=== PATIENT | male | born 1970 | race Caucasian/White ===

== ENCOUNTER 2018-10-23 18:15 | Emergency (ER) | payer MEDICARE | END 2018-10-23 18:30 | disposition left against medical advice (07) | LOC: ED 18:15 | DX: R10.32 Left lower quadrant pain (principal); Z53.21 Procedure and treatment not carried out due to patient leaving prior to being seen by health care provider ==

== ENCOUNTER 2018-12-22 01:12 | Inpatient (IN) | payer MEDICARE ==
[2018-12-22] MEDS ORDERED: TYLENOL PO ONE (02:09)
[2018-12-22] MEDS ORDERED: TYLENOL ONE (02:13)
[2018-12-22 02:52] LABS: Basophils # (Auto) 0.1 K/mm3 (0.0-0.1); Basophils % (Auto) 1.4 % (0.0-1.8); Eosinophils # (Auto) 0.1 K/mm3 (0.0-0.4); Eosinophils % (Auto) 2.1 % (0.0-4.3); Hematocrit 29.4 % (35.5-45.6); Hemoglobin 9.7 gm/dl (11.8-15.2); Lymphocytes # (Auto) 1.1 K/mm3 (1.2-5.4); Lymphocytes % (Auto) 17.3 % (13.4-35.0); Mean Corpuscular HGB Conc 33 % (32-34); Mean Corpuscular Volume 98 fl (84-94); Monocytes # (Auto) 0.5 K/mm3 (0.0-0.8); Monocytes % (Auto) 7.7 % (0.0-7.3); Platelet Count 314 K/mm3 (140-440); Red Cell Distribution Width 14.9 % (13.2-15.2)
[2018-12-22 03:02] LABS: Bacteria,Urine 1+ /HPF (Negative); Bilirubin,Urine NEG (Negative); Blood,Urine SM (Negative); Color,Urine Straw (Yellow); RBC,Urine < 1.0 /HPF (0.0-6.0); Urobilinogen,Urine < 2.0 mg/dL (<2.0)
[2018-12-22 03:03] LABS: Albumin 4.3 g/dL (3.9-5); Calcium 7.7 mg/dL (8.4-10.2)
--- NOTE | 2018-12-22 03:03 | Emergency Department Report ---
ED General Adult HPI - General Chief complaint: Abdominal Pain Stated complaint: ABD PAIN Time Seen by Provider: 12/22/18 02:46 Source: patient, RN notes reviewed, old records reviewed Mode of arrival: Ambulatory Limitations: No Limitations - History of Present Illness Initial comments: Patient does not have a primary care doctor. Nephrology: Dr. Montez This is a 48-year-old gentleman. The patient is not known to this provider previously. He has a history of end-stage renal disease, on dialysis, peritoneal dialysis, and hypertension. Patient presents to the emergency room today with complaint of nontraumatic right lower quadrant pain. The pain is throbbing and intermittent. It started a few hours ago. He reports having had pain like this twice in the past, both times were decreased with morphine. He describes multiple episodes of nausea, vomiting, and loose stool. He describes his emesis as reddish. He describes his stools as reddish. He denies headache, neck pain, chest pain, shortness of breath, testicular pain, irritative an obstructive urinary symptoms. He denies focal extremity weakness. He reports that he does not take any systemic anticoagulation. -: Gradual Location: abdomen Radiation: non-radiation Severity scale (0 -10): 10 Quality: aching Consistency: intermittent Improves with: medication Worsens with: none - Related Data Home Medications Medication Instructions Recorded Confirmed Last Taken Calcitriol [Rocaltrol] 0.25 mcg PO Q48H 05/22/18 05/22/18 Unknown Calcium Acetate [Phoslo] 1,334 mg PO DAILY 05/22/18 05/22/18 Unknown Carvedilol [Coreg] 25 mg PO BID 05/22/18 05/22/18 Unknown Furosemide [Lasix] 80 mg PO DAILY 05/22/18 05/22/18 Unknown Hydralazine HCl 50 mg PO TID 05/22/18 05/22/18 Unknown Lisinopril [Zestril] 20 mg PO DAILY 05/22/18 05/22/18 Unknown Multivitamin [Multiple Vitamins] 1 each PO DAILY 05/22/18 05/22/18 Unknown NIFEdipine [Nifedipine ER] 30 mg PO DAILY 05/22/18 05/22/18 Unknown Oxycodone HCl/Acetaminophen 1 each PO Q6HR PRN 05/22/18 05/22/18 Unknown [Percocet 2.5/325 mg] Pravastatin [Pravachol] 20 mg PO QHS 05/22/18 05/22/18 Unknown Sodium Bicarbonate 650 mg PO TID 05/22/18 05/22/18 Unknown Allergies Allergy/AdvReac Type Severity Reaction Status Date / Time No Known Allergies Allergy Unverified 05/22/18 12:04 ED Review of Systems ROS: Stated complaint: ABD PAIN Other details as noted in HPI Constitutional: malaise. denies: fever Eyes: denies: eye discharge ENT: denies: epistaxis Respiratory: denies: cough Cardiovascular: denies: chest pain Gastrointestinal: abdominal pain, nausea, vomiting Genitourinary: denies: dysuria, testicular pain Musculoskeletal: denies: back pain Skin: denies: lesions Neurological: denies: weakness Psychiatric: denies: anxiety ED Past Medical Hx - Past Medical History Previous Medical History?: Yes Hx Hypertension: Yes Hx Congestive Heart Failure: Yes Hx Renal Disease: Yes (Peritoneal dialysis) Hx Headaches / Migraines: Yes (Past hx migraines) - Surgical History Past Surgical History?: Yes Additional Surgical History: PD catheter - Social History Smoking Status: Never Smoker Substance Use Type: None - Medications Home Medications: Home Medications Medication Instructions Recorded Confirmed Last Taken Type Calcitriol [Rocaltrol] 0.25 mcg PO Q48H 05/22/18 05/22/18 Unknown History Calcium Acetate [Phoslo] 1,334 mg PO DAILY 05/22/18 05/22/18 Unknown History Carvedilol [Coreg] 25 mg PO BID 05/22/18 05/22/18 Unknown History Furosemide [Lasix] 80 mg PO DAILY 05/22/18 05/22/18 Unknown History Hydralazine HCl 50 mg PO TID 05/22/18 05/22/18 Unknown History Lisinopril [Zestril] 20 mg PO DAILY 05/22/18 05/22/18 Unknown History Multivitamin [Multiple Vitamins] 1 each PO DAILY 05/22/18 05/22/18 Unknown History NIFEdipine [Nifedipine ER] 30 mg PO DAILY 05/22/18 05/22/18 Unknown History Oxycodone HCl/Acetaminophen 1 each PO Q6HR PRN 05/22/18 05/22/18 Unknown History [Percocet 2.5/325 mg] Pravastatin [Pravachol] 20 mg PO QHS 05/22/18 05/22/18 Unknown History Sodium Bicarbonate 650 mg PO TID 05/22/18 05/22/18 Unknown History ED Physical Exam - General Limitations: No Limitations General appearance: alert, in no apparent distress - Head Head exam: Present: atraumatic, normocephalic - Eye Eye exam: Present: normal appearance, EOMI. Absent: nystagmus - ENT ENT exam: Present: normal exam, normal orophraynx, mucous membranes moist, normal external ear exam - Neck Neck exam: Present: normal inspection, full ROM. Absent: tenderness, meningismus - Respiratory Respiratory exam: Present: normal lung sounds bilaterally. Absent: respiratory distress - Cardiovascular Cardiovascular Exam: Present: regular rate, normal rhythm, normal heart sounds. Absent: bradycardia, tachycardia, irregular rhythm, systolic murmur, diastolic murmur, rubs, gallop - GI/Abdominal GI/Abdominal exam: Present: soft, tenderness (there is right-sided abdominal tenderness to deep palpation. However, with distraction, abdomen is nontender), other (there is a left-sided peritoneal dialysis catheter, with no redness, pus or streaking.). Absent: distended, guarding, rebound, rigid - Rectal Rectal exam: Present: normal inspection, normal rectal tone, heme (-) stool, other (chaperoned by nurse Tessie Snyder) - exam: Present: normal inspection, other (there is no testicular tenderness. There is normal testicular lie bilaterally. There is normal cremasteric reflex bilaterally.). Absent: testicular tenderness External exam: Present: normal external exam, other (chaperoned by nurse Tessie Snyder) - Extremities Exam Extremities exam: Present: normal inspection, full ROM, other (2+ pulses noted in the bilateral upper, lower extremities. Compartments soft. No long bony tenderness. The pelvis is stable.). Absent: tenderness, joint swelling, calf tenderness - Back Exam Back exam: Present: normal inspection, full ROM. Absent: tenderness, CVA tenderness (R), CVA tenderness (L), paraspinal tenderness, vertebral tenderness - Neurological Exam Neurological exam: Present: alert, normal gait, other (Extraocular movements intact. Tongue midline. No facial droop. Facial sensation intact to light touch in the V1, V2, V3 distribution bilaterally. 5 and 5 strength in 4 extremities.. Sensation is intact to light touch in 4 extremities.). Absent: motor sensory deficit - Psychiatric Psychiatric exam: Present: anxious - Skin Skin exam: Present: warm, dry, intact, normal color. Absent: rash ED Course Vital Signs 12/22/18 12/22/18 01:41 03:01 Temperature 97.9 F Pulse Rate 84 Respiratory 16 Rate Blood Pressure 190/97 194/93 O2 Sat by Pulse 98 Oximetry - Reevaluation(s) Reevaluation #1: 12/22/18 03:03 ga rn recovery aware Total Prescriptions 3 Total Private Pay 2 Total Prescribers 2 Total Pharmacies 2 Opioids* (excluding buprenorphine) Current Qty 148.0 Current MME/day 225.0 30 Day Avg MME/day 51.0 Buprenorphine* Current Qty 0.0 Current mg/day 0.0 30 Day Avg mg/day 0.0 Prescriptions Filled ID Written Drug QTY Days Prescriber Rx # Pharmacy * Refills Daily Dose Pymt Type DOCUMENT PREPARATION SPECIALIST 12/18/2018 2 12/08/2018 OXYCODONE HCL 30 MG TABLET 120.0 30 AN [facility] [id number] [place] (1586) 0 180.0 MME Private Pay [place] 12/09/2018 2 12/09/2018 OXYCODONE-ACETAMINOPHEN 10-325 90.0 30 AN [facility] [address] [place] (1586) 0 45.0 MME Private Pay [place] 11/06/2018 1 11/06/2018 OXYCODONE-ACETAMINOPHEN 5-325 30.0 7 [facility] [id number] [facility] ([id number]) 0 32.14 MME [place] *Pharmacy is created using a combination of pharmacy name and the last four digits of the pharmacy license number. *Per CDC guidance, the MME conversion factors prescribed or provided as part of medication-assisted treatment for opioid use disorder should not be used to benchmark against dosage thresholds meant for opioids prescribed for pain. Buprenorphine products have no agreed upon morphine equivalency, and as partial opioid agonists, are not expected to be associated with overdose risk in the same dose-dependent manner as doses for full agonist opioids. MME = morphine milligram equivalents. mg = dose in milligrams. Prescribers Name Address [facility] Zip Phone [address] [facility] [address] MANAN HERMAN I, [place] [address] [facility] [address] [facility] Address [facility] Zip Phone [employer] [phone] [facility] [address] [facility] [phone] [place] [address] Reevaluation #2: 12/22/18 04:59 Hypertension reviewed and appreciated, patient does not appear to be symptomatic, this is likely a chronic finding. Wheelchair with hydralazine. Reevaluation #3: 12/22/18 05:01 CT scan demonstrates the following pertinent findings IMPRESSION: Mild right hydroureteronephrosis and periureteral stranding may be due to infection or recently passed stone. No obstructive ureterolithiasis identified at this time. Tubing coiled in the pelvis with small volume of pelvic ascites and no focal fluid collection identified to suggest abscess or pseudocyst. Normal appendix. This document is electronically signed by Josue Cruz MD., December 22 2018 04:55:44 AM ET Transcribed By: MB Dictated By: JOSUE CRUZ MD Electronically Authenticated By: JOSUE CRUZ MD Signed Date/Time: 12/22/18 0452 ED Medical Decision Making - Lab Data Result diagrams: 12/22/18 02:16 12/22/18 02:16 Vital Signs 12/22/18 12/22/18 01:41 03:01 Temperature 97.9 F Pulse Rate 84 Respiratory 16 Rate Blood Pressure 190/97 194/93 O2 Sat by Pulse 98 Oximetry Labs 12/22/18 12/22/18 12/22/18 02:16 02:16 02:30 WBC 6.5 RBC 3.00 L Hgb 9.7 L Hct 29.4 L MCV 98 H MCH 32 MCHC 33 RDW 14.9 Plt Count 314 Lymph % (Auto) 17.3 [place] % (Auto) 7.7 H Eos % (Auto) 2.1 Baso % (Auto) 1.4 Lymph # 1.1 L [place] # 0.5 Eos # 0.1 Baso # 0.1 Seg Neutrophils % 71.5 H Seg Neutrophils # 4.7 Sodium 142 Potassium 5.4 H Chloride 100.8 Carbon Dioxide 12 L Anion Gap 35 BUN 148 H Creatinine 33.7 H Estimated GFR 1 BUN/Creatinine Ratio 4 Glucose 119 H Calcium 7.7 L Total Bilirubin 0.20 AST 14 ALT 8 Alkaline Phosphatase 38 Total Protein 7.3 Albumin 4.3 Albumin/Globulin Ratio 1.4 Urine Color Straw Urine Turbidity Clear Urine pH 5.0 Ur Specific [place] 1.012 Urine Protein 100 mg/dl Urine Glucose (UA) Neg Urine Ketones Neg Urine Blood Sm Urine Nitrite Neg Urine Bilirubin Neg Urine Urobilinogen < 2.0 Ur Leukocyte Esterase Neg Urine WBC (Auto) 2.0 Urine RBC (Auto) < 1.0 U Epithel Cells (Auto) 1.0 Urine Bacteria (Auto) 1+ - EKG Data -: EKG Interpreted by Ne EKG shows normal: sinus rhythm Rate: normal - EKG Data 12/22/18 05:11 This is a normal sinus rhythm. 85 bpm. QTC prolonged, left ventricular hypertrophy, numerous T-wave abnormalities, there is no endorsement of chest pain, this EKG is abnormal, this EKG is not consistent with ST elevation myocardial infarction. - Radiology Data Radiology results: pending, report reviewed, image reviewed Print Report Referring Physician: JOSUE QUILES Patient Name: TRA VELAZQUEZ Date of : 1970 Sex: Male Report Date: 2018-12-22 Report Status: Finalized Findings [facility] [address] [place] [address] Cat Scan Report Signed Patient: TRA VELAZQUEZ MR#: [id number] : 1970 Acct:[id number] Age/Sex: 48 / M ADM Date: 12/22/18 Loc: ED Attending Dr: Ordering Physician: JOSUE QUILES MD Date of Service: 12/22/18 Procedure(s): CT abdomen pelvis wo con Accession Number(s): [id number] cc: JOSUE QUILES MD PROCEDURE: CT ABDOMEN PELVIS WO CON TECHNIQUE: Noncontrast CT of the abdomen and pelvis HISTORY: rlq pain COMPARISONS: None FINDINGS: Imaged intrathoracic contents are unremarkable. Kidneys are normal in size, axis and position. Bilateral perinephric stranding and edema. Mild right hydroureteronephrosis and periureteral edema. No nephrolithiasis. No stones in the urinary bladder. No left-sided hydroureteronephrosis. Mild thickening of both adrenal glands without focal nodule. The liver, gallbladder, pancreas, and spleen demonstrate an unremarkable noncontrast appearance. Percutaneous tubing extends through the left para midline abdominal wall and terminates coiled in the pelvis. Trace free fluid in the pelvis. No focal fluid collection identified surrounding the tubing. Hollow enteric organs are normal in course and caliber. Appendix is normal. No pneumoperitoneum or abscess. Aorta is normal in course and caliber. Superficial soft tissues are unremarkable. No acute or aggressive appearing skeletal findings. IMPRESSION: Mild right hydroureteronephrosis and periureteral stranding may be due to infection or recently passed stone. No obstructive ureterolithiasis identified at this time. Tubing coiled in the pelvis with small volume of pelvic ascites and no focal fluid collection identified to suggest abscess or pseudocyst. Normal appendix. This document is electronically signed by Josue Cruz MD., December 22 2018 04:55:44 AM ET Transcribed By: IBETH Dictated By: JOSUE CRUZ MD Electronically Authenticated By: JOSUE CRUZ MD Signed Date/Time: 12/22/18 0458 - Medical Decision Making Differential diagnosis, including but not limited to: Uremia, azotemia, constipation, narcotic bowel syndrome, cyclic vomiting syndrome, urinary tract infection, spontaneous bacterial peritonitis Assessment and plan: 48-year-old gentleman with recurrent abdominal pain. He is afebrile with reassuring vital signs with the exception of hypertension. Laboratory studies are reviewed and appreciated. He is found to have hyperkalemia, azotemia, and uremia. His physical exam does not demonstrate evidence of obvious bleeding at this time. Nursing team is unable to obtain fluid for peritoneal fluid analysis, as they do not have a sterile placement. Nursing team currently working in conjunction with the camp housekeeper to obtai n a sterile to obtain peritoneal fluid. Clinically have low suspicion for bacterial peritonitis at this time. Contacted nephrology environment artist, Dr. Rosario, working with Dr Montez, who agrees with plan for admission for symptom control, his laboratory studies have indicated evidence of poorly controlled azotemia and uremia. Patient may need to be converted to hemodialysis. CT scan of the abdomen and pelvis is pending interpretation at this time. Hospital physician, Dr. Thomas to admit patient to the medical service. Discussed this plan of care with the patient, who verbalized understanding, and who is amenable to hospitalization. Critical care attestation.: If time is entered above; I have spent that time in minutes in the direct care of this critically ill patient, excluding procedure time. ED Disposition Clinical Impression: Azotemia, Uremia, Acute abdominal pain, Hypertensive urgency Disposition: DC-09 OP ADMIT IP TO THIS HOSP Is pt being admited?: Yes Condition: Good Referrals: BLAKE DAVENPORT MD [Primary Care Provider] - 3-5 Days
[2018-12-22] MEDS ORDERED: MORPHINE IM ONE (03:12)
[2018-12-22] MEDS ORDERED: ROCEPHIN/NS 1 GM/50 ML 1 GM/50 ML BAG IV ONE (04:27)
[2018-12-22] MEDS ORDERED: KIONEX PO ONE (04:27)
[2018-12-22] MEDS ORDERED: ZOFRAN IV ONE (04:28)
--- NOTE | 2018-12-22 04:58 | Cat Scan Report ---
PROCEDURE: CT ABDOMEN PELVIS WO CON TECHNIQUE: Noncontrast CT of the abdomen and pelvis HISTORY: rlq pain COMPARISONS: None FINDINGS: Imaged intrathoracic contents are unremarkable. Kidneys are normal in size, axis and position. Bilateral perinephric stranding and edema. Mild right hydroureteronephrosis and periureteral edema. No nephrolithiasis. No stones in the urinary bladder. N o left-sided hydroureteronephrosis. Mild thickening of both adrenal glands without focal nodule. The liver, gallbladder, pancreas, and sp ivania demonstrate an unremarkable noncontrast appearance. Percutaneous tubing extends through the left para midline abdominal wall and terminates coiled in the pelvis. Trace free fluid in the pelvis. No focal fluid collection identified surrounding the tubing. Hollow enteric organs are normal in course and caliber. Appendix is normal. No pneumoperitoneum or a bscess. Aorta is normal in course and caliber. Superficial soft tissues are unremarkable. No acute or aggressive appearing skeletal findings. IMPRESSION: Mild right hydroureteronephrosis and periureteral stranding may be due to infection or recently passe d stone. No obstructive ureterolithiasis identified at this time. Tubing coiled in the pelvis with small volume of pelvic ascites and no focal fluid collection identif ied to suggest abscess or pseudocyst. Normal appendix. This document is electronically signed by Josue Estrella MD., December 22 2018 04:55:44 AM ET
[2018-12-22] MEDS ORDERED: APRESOLINE IV ONE (04:59)
[2018-12-22] MEDS ORDERED: DILAUDID IV ONE (05:00)
[2018-12-22] MEDS ORDERED: DILAUDID ONE (05:03)
[2018-12-22] MEDS ORDERED: SODIUM CHLORIDE FLUSH SYRINGE 10 ML IV PRN (05:54)
--- NOTE | 2018-12-22 06:04 | History and Physical Report ---
<JEFFREY GILL - Last Filed: 12/22/18 06:26> History of Present Illness Date of examination: 12/22/18 Date of admission: 12/22/2018 Chief complaint: Abdominal pain History of present illness: Patient is a 48-year-old male with PMHx of end-stage renal disease on PD, heart failure, hypertension who presents to the ER with complaints of abdomen pain for 2 days. Patient states that the he usually gets so sick when his potassium is elevated. Patient reports a right lower quadrant abdominal pain, associated with nausea and vomiting. Patient states that the pain is associated with several episodes of vomiting and some loose diarrhea. Patient denies fever, denies headache, denies dizziness, patient was seen in the ER, he had a CT scan of the abdomen which showed mild right hydroreteronephrosis and periureteral stranding which may be due to infection or recently passed stone. Urology consulted for evaluation and patient is admitted for further admission. Past History Past Medical History: ESRD, heart failure, hypertension Past Surgical History: Other (peritoneal cath) Social history: no significant social history Family history: no significant family history Medications and Allergies Allergies Allergy/AdvReac Type Severity Reaction Status Date / Time No Known Allergies Allergy Unverified 05/22/18 12:04 Home Medications Medication Instructions Recorded Confirmed Last Taken Type Calcitriol [Rocaltrol] 0.25 mcg PO Q48H 05/22/18 05/22/18 Unknown History Calcium Acetate [Phoslo] 1,334 mg PO DAILY 05/22/18 05/22/18 Unknown History Carvedilol [Coreg] 25 mg PO BID 05/22/18 05/22/18 Unknown History Furosemide [Lasix] 80 mg PO DAILY 05/22/18 05/22/18 Unknown History Hydralazine HCl 50 mg PO TID 05/22/18 05/22/18 Unknown History Lisinopril [Zestril] 20 mg PO DAILY 05/22/18 05/22/18 Unknown History Multivitamin [Multiple Vitamins] 1 each PO DAILY 05/22/18 05/22/18 Unknown History NIFEdipine [Nifedipine ER] 30 mg PO DAILY 05/22/18 05/22/18 Unknown History Oxycodone HCl/Acetaminophen 1 each PO Q6HR PRN 05/22/18 05/22/18 Unknown History [Percocet 2.5/325 mg] Pravastatin [Pravachol] 20 mg PO QHS 05/22/18 05/22/18 Unknown History Sodium Bicarbonate 650 mg PO TID 05/22/18 05/22/18 Unknown History Active Meds: Active Medications Docusate Sodium (Colace) 100 mg PO BID [facility] Enoxaparin Sodium (Lovenox) 30 mg SUB-Q QDAY [facility] Morphine Sulfate (Morphine) 2 mg IV Q4H PRN PRN Reason: Pain, Moderate (4-6) Sodium Chloride (Sodium Chloride Flush Syringe 10 Ml) 10 ml IV BID [facility] Sodium Chloride (Sodium Chloride Flush Syringe 10 Ml) 10 ml IV PRN PRN PRN Reason: LINE FLUSH Review of Systems Gastrointestinal: abdominal pain, nausea, vomiting, diarrhea Exam - Constitutional Vitals: Temp Pulse Resp BP Pulse Ox 97.9 F 84 16 194/93 98 12/22/18 01:41 12/22/18 01:41 12/22/18 01:41 12/22/18 03:01 12/22/18 01:41 General appearance: Present: no acute distress - EENT Eyes: Present: EOM intact ENT: hearing intact - Neck Neck: Present: supple - Respiratory Respiratory effort: normal Respiratory: bilateral: CTA - Cardiovascular Rhythm: regular - Extremities Extremities: no ischemia, No edema Peripheral Pulses: within normal limits - Abdominal General gastrointestinal: Present: tender Results - Labs CBC & Chem 7: 12/22/18 02:16 12/22/18 02:16 Labs: Laboratory Last Values WBC 6.5 K/mm3 (4.5-11.0) 12/22/18 02:16 RBC 3.00 M/mm3 (3.65-5.03) L 12/22/18 02:16 Hgb 9.7 gm/dl (11.8-15.2) L 12/22/18 02:16 Hct 29.4 % (35.5-45.6) L 12/22/18 02:16 MCV 98 fl (84-94) H 12/22/18 02:16 MCH 32 pg (28-32) 12/22/18 02:16 MCHC 33 % (32-34) 12/22/18 02:16 RDW 14.9 % (13.2-15.2) 12/22/18 02:16 Plt Count 314 K/mm3 (140-440) 12/22/18 02:16 Lymph % (Auto) 17.3 % (13.4-35.0) 12/22/18 02:16 [place] % (Auto) 7.7 % (0.0-7.3) H 12/22/18 02:16 Eos % (Auto) 2.1 % (0.0-4.3) 12/22/18 02:16 Baso % (Auto) 1.4 % (0.0-1.8) 12/22/18 02:16 Lymph # 1.1 K/mm3 (1.2-5.4) L 12/22/18 02:16 [place] # 0.5 K/mm3 (0.0-0.8) 12/22/18 02:16 Eos # 0.1 K/mm3 (0.0-0.4) 12/22/18 02:16 Baso # 0.1 K/mm3 (0.0-0.1) 12/22/18 02:16 Seg Neutrophils % 71.5 % (40.0-70.0) H 12/22/18 02:16 Seg Neutrophils # 4.7 K/mm3 (1.8-7.7) 12/22/18 02:16 Sodium 142 mmol/L (137-145) 12/22/18 02:16 Potassium 5.4 mmol/L (3.6-5.0) H 12/22/18 02:16 Chloride 100.8 mmol/L (98-107) 12/22/18 02:16 Carbon Dioxide 12 mmol/L (22-30) L 12/22/18 02:16 35 mmol/L 12/22/18 02:16 BUN 148 mg/dL (9-20) H 12/22/18 02:16 33.7 mg/dL (0.8-1.5) H 12/22/18 02:16 Estimated GFR 1 ml/min 12/22/18 02:16 4 % 12/22/18 02:16 Glucose 119 mg/dL (75-100) H 12/22/18 02:16 POC Glucose 129 (70-105) H 12/22/18 05:00 Lactic Acid 0.80 mmol/L (0.7-2.0) 12/22/18 04:32 Calcium 7.7 mg/dL (8.4-10.2) L 12/22/18 02:16 0.20 mg/dL (0.1-1.2) 12/22/18 02:16 AST 14 units/L (5-40) 12/22/18 02:16 ALT 8 units/L (7-56) 12/22/18 02:16 38 units/L (35-129) 12/22/18 02:16 7.3 g/dL (6.3-8.2) 12/22/18 02:16 4.3 g/dL (3.9-5) 12/22/18 02:16 1.4 % 12/22/18 02:16 Straw (Yellow) 12/22/18 02:30 Clear (Clear) 12/22/18 02:30 5.0 (5.0-7.0) 12/22/18 02:30 Ur Specific [place] 1.012 (1.003-1.030) 12/22/18 02:30 100 mg/dl mg/dL (Negative) 12/22/18 02:30 Neg mg/dL (Negative) 12/22/18 02:30 Neg mg/dL (Negative) 12/22/18 02:30 Sm (Negative) 12/22/18 02:30 Neg (Negative) 12/22/18 02:30 Neg (Negative) 12/22/18 02:30 < 2.0 mg/dL (<2.0) 12/22/18 02:30 Ur Leukocyte Esterase Neg (Negative) 12/22/18 02:30 2.0 /HPF (0.0-6.0) 12/22/18 02:30 < 1.0 /HPF (0.0-6.0) 12/22/18 02:30 U Epithel Cells (Auto) 1.0 /HPF (0-13.0) 12/22/18 02:30 1+ /HPF (Negative) 12/22/18 02:30 Assessment and Plan Assessment and plan: 1. Right lower quadrant abdominal pain 2. ESRD on PD 3. H/o Hear failure (stable) 4. Hypertension 5. Hyperkalemia 6. Right had a true ureteral nephrosis Plan: Admit to [facility] for abdominal pain Pain control with Dilaudid Chek Electrolytessium level CT of the abdomen (pending) (result noted) Consult nephrology for PD management Consult radiology for hydroureteronephrosis Plan of care was d/w pt, voiced understanding Pt's condition and plan of care of care discussed with the attending Advance Directives: Yes Contraindication Mechanical VTE Prophylaxis: Contraindicated Plan of care discussed with patient/family: Yes <CARINE DELGADO - Last Filed: 12/22/18 06:52> Medications and Allergies Active Meds: Active Medications Docusate Sodium (Colace) 100 mg PO BID [facility] Enoxaparin Sodium (Lovenox) 30 mg SUB-Q QDAY [facility] Ceftriaxone Sodium (Rocephin/Ns 1 Gm/50 Ml) 1 gm in 50 mls @ 100 mls/hr IV Q24HR [facility]; Protocol Morphine Sulfate (Morphine) 2 mg IV Q4H PRN PRN Reason: Pain, Moderate (4-6) Peritoneal Dialysis Solution (Dianeal Low Calcium W/2.5% Dextrose) 2,000 ml IP Q4HR [facility] Sodium Chloride (Sodium Chloride Flush Syringe 10 Ml) 10 ml IV BID [facility] Sodium Chloride (Sodium Chloride Flush Syringe 10 Ml) 10 ml IV PRN PRN PRN Reason: LINE FLUSH Exam - Constitutional Vitals: Temp Pulse Resp BP Pulse Ox 97.9 F 84 16 173/82 98 12/22/18 01:41 12/22/18 01:41 12/22/18 01:41 12/22/18 06:20 12/22/18 01:41 Results - Labs CBC & Chem 7: 12/22/18 02:16 12/22/18 02:16 Labs: Laboratory Last Values WBC 6.5 K/mm3 (4.5-11.0) 12/22/18 02:16 RBC 3.00 M/mm3 (3.65-5.03) L 12/22/18 02:16 Hgb 9.7 gm/dl (11.8-15.2) L 12/22/18 02:16 Hct 29.4 % (35.5-45.6) L 12/22/18 02:16 MCV 98 fl (84-94) H 12/22/18 02:16 MCH 32 pg (28-32) 12/22/18 02:16 MCHC 33 % (32-34) 12/22/18 02:16 RDW 14.9 % (13.2-15.2) 12/22/18 02:16 Plt Count 314 K/mm3 (140-440) 12/22/18 02:16 Lymph % (Auto) 17.3 % (13.4-35.0) 12/22/18 02:16 [place] % (Auto) 7.7 % (0.0-7.3) H 12/22/18 02:16 Eos % (Auto) 2.1 % (0.0-4.3) 12/22/18 02:16 Baso % (Auto) 1.4 % (0.0-1.8) 12/22/18 02:16 Lymph # 1.1 K/mm3 (1.2-5.4) L 12/22/18 02:16 [place] # 0.5 K/mm3 (0.0-0.8) 12/22/18 02:16 Eos # 0.1 K/mm3 (0.0-0.4) 12/22/18 02:16 Baso # 0.1 K/mm3 (0.0-0.1) 12/22/18 02:16 Seg Neutrophils % 71.5 % (40.0-70.0) H 12/22/18 02:16 Seg Neutrophils # 4.7 K/mm3 (1.8-7.7) 12/22/18 02:16 Sodium 142 mmol/L (137-145) 12/22/18 02:16 Potassium 5.4 mmol/L (3.6-5.0) H 12/22/18 02:16 Chloride 100.8 mmol/L (98-107) 12/22/18 02:16 Carbon Dioxide 12 mmol/L (22-30) L 12/22/18 02:16 35 mmol/L 12/22/18 02:16 BUN 148 mg/dL (9-20) H 12/22/18 02:16 33.7 mg/dL (0.8-1.5) H 12/22/18 02:16 Estimated GFR 1 ml/min 12/22/18 02:16 4 % 12/22/18 02:16 Glucose 119 mg/dL (75-100) H 12/22/18 02:16 POC Glucose 129 (70-105) H 12/22/18 05:00 Lactic Acid 0.80 mmol/L (0.7-2.0) 12/22/18 04:32 Calcium 7.7 mg/dL (8.4-10.2) L 12/22/18 02:16 0.20 mg/dL (0.1-1.2) 12/22/18 02:16 AST 14 units/L (5-40) 12/22/18 02:16 ALT 8 units/L (7-56) 12/22/18 02:16 38 units/L (35-129) 12/22/18 02:16 7.3 g/dL (6.3-8.2) 12/22/18 02:16 4.3 g/dL (3.9-5) 12/22/18 02:16 1.4 % 12/22/18 02:16 Straw (Yellow) 12/22/18 02:30 Clear (Clear) 12/22/18 02:30 5.0 (5.0-7.0) 12/22/18 02:30 Ur Specific [place] 1.012 (1.003-1.030) 12/22/18 02:30 100 mg/dl mg/dL (Negative) 12/22/18 02:30 Neg mg/dL (Negative) 12/22/18 02:30 Neg mg/dL (Negative) 12/22/18 02:30 Sm (Negative) 12/22/18 02:30 Neg (Negative) 12/22/18 02:30 Neg (Negative) 12/22/18 02:30 < 2.0 mg/dL (<2.0) 12/22/18 02:30 Ur Leukocyte Esterase Neg (Negative) 12/22/18 02:30 2.0 /HPF (0.0-6.0) 12/22/18 02:30 < 1.0 /HPF (0.0-6.0) 12/22/18 02:30 U Epithel Cells (Auto) 1.0 /HPF (0-13.0) 12/22/18 02:30 1+ /HPF (Negative) 12/22/18 02:30 Assessment and Plan Assessment and plan: 48-year-old man with a history of hypertension, end-stage renal disease on peritoneal dialysis, CHF S emergency room for evaluation of right lower quadrant pain that started at midnight, sharp pain, constant, no radiation, intensity is 7/10. Symptoms started after PD was finish. Renal was consulted for dialysis, status post Kayexalate for hyperkalemia. Empiric IV Rocephin started for possible SBP, follow fluid culture. CAT scan of the abdomen and pelvis shows right Hydroureterohydronephrosis, consult urology when available, none manager division today. Patien seen and examined, d/w ECOLOGY PROFESSOR.
[2018-12-22] MEDS ORDERED: OXYCODONE HCL PO PRN (06:59)
[2018-12-22] MEDS ORDERED: ACETAMINOPHEN PO PRN (06:59)
[2018-12-22] MEDS ORDERED: APRESOLINE ONE (07:01)
[2018-12-22] MEDS ORDERED: ROXICODONE PO PRN (07:39)
[2018-12-22] MEDS ORDERED: TYLENOL PO PRN (07:41)
[2018-12-22] MEDS ORDERED: NON-FORMULARY (Hydralazine Hcl [Hydralazine Hcl] 50 MG) PO SCH (08:00)
[2018-12-22] MEDS: MORPHINE IV PRN ×2 (08:15→21:41)
--- NOTE | 2018-12-22 08:17 | Event Note ---
Date: 12/22/18 Patient seen and examined medical records reviewed Patient complaints of abdominal pain, evaluation by nephrology Planning for hemodialysis, agree with the current management
[2018-12-22] MEDS: PHOSLO PO SCH (08:23)
[2018-12-22] MEDS: ROCALTROL PO SCH (08:24)
[2018-12-22] MEDS: APRESOLINE PO SCH ×3 (08:24→21:31)
[2018-12-22] MEDS: SODIUM BICARBONATE PO SCH ×3 (08:25→21:31)
[2018-12-22] MEDS: COLACE PO SCH ×2 (09:23→21:30)
[2018-12-22] MEDS: COREG PO SCH ×2 (09:23→21:30)
[2018-12-22] MEDS: LOVENOX SUB-Q SCH (09:24)
[2018-12-22] MEDS: LASIX PO SCH (09:24)
[2018-12-22] MEDS: PROCARDIA XL PO SCH (09:25)
[2018-12-22] MEDS: Renal Caps PO SCH (09:25)
[2018-12-22] MEDS: ZESTRIL PO SCH (09:25)
[2018-12-22] MEDS: SODIUM CHLORIDE FLUSH SYRINGE 10 ML IV SCH ×2 (09:26→21:32)
[2018-12-22] MEDS: ROCEPHIN/NS 1 GM/50 ML 1 GM/50 ML BAG IV SCH (09:37)
[2018-12-22] MEDS ORDERED: NON-FORMULARY (Multivitamin [Multiple Vitamins] 1 EACH) PO SCH (10:00)
[2018-12-22] MEDS ORDERED: NON-FORMULARY (Furosemide [Lasix Tab] 80 MG) PO SCH (10:00)
[2018-12-22] MEDS: DIANEAL LOW CALCIUM W/2.5% DEXTROSE IP SCH ×4 (10:00→21:32)
[2018-12-22] MEDS: ZOFRAN IV PRN (11:40)
--- NOTE | 2018-12-22 12:11 | Consultation ---
History of Present Illness - Reason for Consult Consult date: 12/22/18 - History of Present Illness new to our service Patient is a 48-year-old male with PMHx of end-stage renal disease on PD, heart failure, hypertension who presents to the ER with complaints of abdomen pain for 2 days. Patient states that the he usually gets so sick when his potassium is elevated. Patient reports a right lower quadrant abdominal pain, associated with nausea and vomiting. Patient states that the pain is associated with several episodes of vomiting and some loose diarrhea. Patient denies fever, denies headache, denies dizziness, patient present to the ER. CT scan of the abdomen which showed mild right hydroreteronephrosis and periureteral stranding which may be due to infection or recently passed stone. no surgery except PD catheter abd soft rt groin pain ---better (hx of left groin pain 2months ago) a/P abd apin--- mild hydro - OBS Past History Past Medical History: ESRD, heart failure, hypertension Past Surgical History: Other (peritoneal cath) Social history: no significant social history Family history: no significant family history Medications and Allergies Allergies Allergy/AdvReac Type Severity Reaction Status Date / Time No Known Allergies Allergy Unverified 05/22/18 12:04 Home Medications Medication Instructions Recorded Confirmed Last Taken Type Calcitriol [Rocaltrol] 0.25 mcg PO Q48H 05/22/18 05/22/18 12/21/18 History Calcium Acetate [Phoslo] 1,334 mg PO DAILY 05/22/18 05/22/18 12/21/18 History Carvedilol [Coreg] 25 mg PO BID 05/22/18 05/22/18 12/21/18 History Furosemide [Lasix] 80 mg PO DAILY 05/22/18 05/22/18 12/21/18 History Hydralazine HCl 50 mg PO TID 05/22/18 05/22/18 12/21/18 History Lisinopril [Zestril] 20 mg PO DAILY 05/22/18 05/22/18 12/21/18 09:00 History Multivitamin [Multiple Vitamins] 1 each PO DAILY 05/22/18 05/22/18 Unknown Histo ry NIFEdipine [Nifedipine ER] 30 mg PO DAILY 05/22/18 05/22/18 Unknown History Oxycodone HCl/Acetaminophen 1 each PO Q6HR PRN 05/22/18 05/22/18 11/28/18 History [Percocet 2.5/325 mg] Pravastatin [Pravachol] 20 mg PO QHS 05/22/18 05/22/18 Unknown History Sodium Bicarbonate 650 mg PO TID 05/22/18 05/22/18 12/21/18 History Active Meds: Active Medications Acetaminophen (Tylenol) 650 mg PO Q6H PRN PRN Reason: Pain, Moderate (4-6) Calcitriol (Rocaltrol) 0.25 mcg PO Q48H [facility] Last Admin: 12/22/18 08:24 Dose: 0.25 mcg Documented by: Calcium Acetate (Phoslo) 1,334 mg PO QAM@0800 [facility] Last Admin: 12/22/18 08:23 Dose: 1,334 mg Documented by: Carvedilol (Coreg) 25 mg PO BID [facility] Last Admin: 12/22/18 09:23 Dose: 25 mg Documented by: Docusate Sodium (Colace) 100 mg PO BID [facility] Last Admin: 12/22/18 09:23 Dose: 100 mg Documented by: Enoxaparin Sodium (Lovenox) 30 mg SUB-Q QDAY [facility] Last Admin: 12/22/18 09:24 Dose: 30 mg Documented by: Furosemide (Lasix) 80 mg PO DAILY [facility] Last Admin: 12/22/18 09:24 Dose: 80 mg Documented by: Hydralazine HCl (Apresoline) 25 mg PO TID [facility] Last Admin: 12/22/18 08:24 Dose: 25 mg Documented by: Ceftriaxone Sodium (Rocephin/Ns 1 Gm/50 Ml) 1 gm in 50 mls @ 100 mls/hr IV Q24HR [facility]; Protocol Last Admin: 12/22/18 09:37 Dose: 100 mls/hr Documented by: Lisinopril (Zestril) 20 mg PO DAILY [facility] Last Admin: 12/22/18 09:25 Dose: 20 mg Documented by: Morphine Sulfate (Morphine) 2 mg IV Q4H PRN PRN Reason: Pain, Moderate (4-6) Last Admin: 12/22/18 08:15 Dose: 2 mg Documented by: Multivit/Ca Carb/B Cmplx/FA/Prenat (Renal Caps) 1 cap PO QDAY [facility] Last Admin: 12/22/18 09:25 Dose: 1 cap Documented by: Nifedipine (Procardia Xl) 30 mg PO DAILY [facility] Last Admin: 12/22/18 09:25 Dose: 30 mg Documented by: Ondansetron HCl (Zofran) 4 mg IV Q4H PRN PRN Reason: Nausea And Vomiting Last Admin: 12/22/18 11:40 Dose: 4 mg Documented by: Oxycodone HCl (Roxicodone) 2.5 mg PO Q6H PRN PRN Reason: Pain, Moderate (4-6) Peritoneal Dialysis Solution (Dianeal Low Calcium W/2.5% Dextrose) 2,000 ml IP Q4HR [facility] Pravastatin Sodium (Pravachol) 20 mg PO QHS [facility] Sodium Bicarbonate (Sodium Bicarbonate) 650 mg PO TID [facility] Last Admin: 12/22/18 08:25 Dose: 650 mg Documented by: Sodium Chloride (Sodium Chloride Flush Syringe 10 Ml) 10 ml IV BID [facility] Last Admin: 12/22/18 09:26 Dose: 10 ml Documented by: Sodium Chloride (Sodium Chloride Flush Syringe 10 Ml) 10 ml IV PRN PRN PRN Reason: LINE FLUSH Exam - Constitutional Vitals: Temp Pulse Resp BP Pulse Ox 97.9 F 95 H 16 190/82 98 12/22/18 01:41 12/22/18 09:25 12/22/18 01:41 12/22/18 08:24 12/22/18 01:41 Results - Labs CBC & Chem 7: 12/22/18 02:16 12/22/18 02:16 Labs: Abnormal lab results 12/22/18 12/22/18 12/22/18 Range/Units 02:16 02:16 05:00 RBC 3.00 L (3.65-5.03) M/mm3 Hgb 9.7 L (11.8-15.2) gm/dl Hct 29.4 L (35.5-45.6) % MCV 98 H (84-94) fl [place] % (Auto) 7.7 H (0.0-7.3) % Lymph # 1.1 L (1.2-5.4) K/mm3 Seg Neutrophils % 71.5 H (40.0-70.0) % Potassium 5.4 H (3.6-5.0) mmol/L Carbon Dioxide 12 L (22-30) mmol/L BUN 148 H (9-20) mg/dL Creatinine 33.7 H (0.8-1.5) mg/dL Glucose 119 H (75-100) mg/dL POC Glucose 129 H (70-105) Calcium 7.7 L (8.4-10.2) mg/dL
[2018-12-22] MEDS ORDERED: XYLOCAINE 1%/ EPI 1:100,000 INFILTRATI ONE (13:29)
[2018-12-22] MEDS ORDERED: HEPARIN/NS 5000 UNIT/500ML(CATH LAB) 500 ML IR ONE (13:29)
[2018-12-22] MEDS ORDERED: NACL 0.9% 500 ML 500 ML ONE (13:30)
[2018-12-22] MEDS ORDERED: ANCEF/STERILE WATER 2 GM/20 ML 2 GM/20 ML SYRINGE IV ONE (13:30)
[2018-12-22] MEDS ORDERED: VERSED ONE ×2 (13:30→14:26)
[2018-12-22] MEDS ORDERED: NACL 0.9% 500 ML 0 ML ONE (13:40)
[2018-12-22] MEDS ORDERED: NACL 0.9% 500 ML 500 ML IV SCH (14:00)
[2018-12-22] MEDS: SUBLIMAZE ONE ×2 (14:14→14:25)
--- NOTE | 2018-12-22 14:17 | Consultation ---
History of Present Illness - History of Present Illness 48 year old with medical history significant for HTN, ESRD on peritoneal meri lysis presenting with complaints of nausea, vomitting for several weeks . He reports he had recent episode of peritonitis and was on hemodialysis. He admits to missing some exchanges since returning to home peritoneal dialysis. He admits to an abnormal taste in his mouth , reports good UF on PD. He denies any sick contacts, denies any orthopnea or PND. Denies any fever or chills. Has had some diarrhoea . He admits to a signficant decrease in urine output as well. Past History Past Medical History: ESRD, heart failure, hypertension Past Surgical History: Other (peritoneal cath) Social history: no significant social history Family history: no significant family history Medications and Allergies Allergies Allergy/AdvReac Type Severity Reaction Status Date / Time No Known Allergies Allergy Unverified 05/22/18 12:04 Home Medications Medication Instructions Recorded Confirmed Last Taken Type Calcitriol [Rocaltrol] 0.25 mcg PO Q48H 05/22/18 12/22/18 12/21/18 History Calcium Acetate [Phoslo] 1,334 mg PO DAILY 05/22/18 12/22/18 12/21/18 History Carvedilol [Coreg] 25 mg PO BID 05/22/18 12/22/18 12/21/18 History Furosemide [Lasix] 80 mg PO DAILY 05/22/18 12/22/18 12/21/18 History Hydralazine HCl 50 mg PO TID 05/22/18 12/22/18 12/21/18 History Lisinopril [Zestril] 20 mg PO DAILY 05/22/18 12/22/18 12/21/18 09:00 History Multivitamin [Multiple Vitamins] 1 each PO DAILY 05/22/18 12/22/18 Unknown History NIFEdipine [Nifedipine ER] 30 mg PO DAILY 05/22/18 12/22/18 Unknown History Oxycodone HCl/Acetaminophen 1 each PO Q6HR PRN 05/22/18 12/22/18 11/28/18 History [Percocet 2.5/325 mg] Pravastatin [Pravachol] 20 mg PO QHS 05/22/18 12/22/18 Unknown History Sodium Bicarbonate 650 mg PO TID 05/22/18 12/22/18 12/21/18 History Active Meds: Active Medications Acetaminophen (Tylenol) 650 mg PO Q6H PRN PRN Reason: Pain, Moderate (4-6) Calcitriol (Rocaltrol) 0.25 mcg PO Q48H [facility] Last Admin: 12/22/18 08:24 Dose: 0.25 mcg Documented by: Calcium Acetate (Phoslo) 1,334 mg PO QAM@0800 [facility] Last Admin: 12/22/18 08:23 Dose: 1,334 mg Documented by: Carvedilol (Coreg) 25 mg PO BID [facility] Last Admin: 12/22/18 09:23 Dose: 25 mg Documented by: Docusate Sodium (Colace) 100 mg PO BID [facility] Last Admin: 12/22/18 09:23 Dose: 100 mg Documented by: Enoxaparin Sodium (Lovenox) 30 mg SUB-Q QDAY [facility] Last Admin: 12/22/18 09:24 Dose: 30 mg Documented by: Furosemide (Lasix) 80 mg PO DAILY [facility] Last Admin: 12/22/18 09:24 Dose: 80 mg Documented by: Hydralazine HCl (Apresoline) 25 mg PO TID [facility] Last Admin: 12/22/18 08:24 Dose: 25 mg Documented by: Ceftriaxone Sodium (Rocephin/Ns 1 Gm/50 Ml) 1 gm in 50 mls @ 100 mls/hr IV Q24HR [facility]; Protocol Last Admin: 12/22/18 09:37 Dose: 100 mls/hr Documented by: Sodium Chloride (Nacl 0.9% 500 Ml) 500 mls @ 50 mls/hr IV DIRECT [facility] Lisinopril (Zestril) 20 mg PO DAILY [facility] Last Admin: 12/22/18 09:25 Dose: 20 mg Documented by: Morphine Sulfate (Morphine) 2 mg IV Q4H PRN PRN Reason: Pain, Moderate (4-6) Last Admin: 12/22/18 08:15 Dose: 2 mg Documented by: Multivit/Ca Carb/B Cmplx/FA/Prenat (Renal Caps) 1 cap PO QDAY [facility] Last Admin: 12/22/18 09:25 Dose: 1 cap Documented by: Nifedipine (Procardia Xl) 30 mg PO DAILY [facility] Last Admin: 12/22/18 09:25 Dose: 30 mg Documented by: Ondansetron HCl (Zofran) 4 mg IV Q4H PRN PRN Reason: Nausea And Vomiting Last Admin: 12/22/18 11:40 Dose: 4 mg Documented by: Oxycodone HCl (Roxicodone) 2.5 mg PO Q6H PRN PRN Reason: Pain, Moderate (4-6) Peritoneal Dialysis Solution (Dianeal Low Calcium W/2.5% Dextrose) 2,000 ml IP Q4HR [facility] Last Admin: 12/22/18 13:13 Dose: Not Given Documented by: Pravastatin Sodium (Pravachol) 20 mg PO QHS [facility] Sodium Bicarbonate (Sodium Bicarbonate) 650 mg PO TID [facility] Last Admin: 12/22/18 08:25 Dose: 650 mg Documented by: Sodium Chloride (Sodium Chloride Flush Syringe 10 Ml) 10 ml IV BID [facility] Last Admin: 12/22/18 09:26 Dose: 10 ml Documented by: Sodium Chloride (Sodium Chloride Flush Syringe 10 Ml) 10 ml IV PRN PRN PRN Reason: LINE FLUSH Review of Systems Constitutional: weight loss, anorexia, poor appetite, no weight gain Ears, nose, mouth and throat: no deferred, no ear pain Cardiovascular: no chest pain, no orthopnea, no dyspnea on exertion Respiratory: no cough Gastrointestinal: nausea, vomiting, diarrhea Genitourinary Male: no dysuria, no hematuria Rectal: no pain, no incontinence Musculoskeletal: no neck stiffness Integumentary: no deferred Neurological: no head injury Psychiatric: no anxiety, no memory loss Endocrine: no cold intolerance, no heat intolerance Allergic/Immunologic: no urticaria Exam - Vital Signs Vital signs: Vital Signs Temp Pulse Resp BP Pulse Ox 97.9 F 84 16 190/97 98 12/22/18 01:41 12/22/18 01:41 12/22/18 01:41 12/22/18 01:41 12/22/18 01:41 - General Appearance General appearance: well-developed, well-nourished EENT: ATNC, PERRL Neck: Present: neck supple Respiratory: Rales, Decreased Breath Sounds Heart: regular, S1S2 Gastrointestinal: Present: normoactive bowel sounds, other (peritoneal dialysis catheter site clean. ) Integumentary: no rash Neurologic: alert and oriented x3, CN 3-12 intact Musculoskeletal: Absent: erythema Psychiatric: mood/affect appropriate Results - Lab Results 12/22/18 02:16 12/22/18 02:16 Most recent lab results Calcium 7.7 mg/dL (8.4-10.2) L 12/22/18 02:16 - Image Kidney/bladder ultrasound: image reviewed, other (I reviewed cT with mild hydroureteronephrosis on right side without nephrolithiasis. ) Assessment and Plan - Patient Problems (1) End stage renal disease Current Visit: Yes Status: Acute Plan to address problem: End stage renal disease - appears poor compliant -has also had a decline in residual renal function - admitted with marked elevated BUN /creatinine with concern for uremia - Not achieving adequate clearance on PD at this time - Given marked Azotemia , Will proceed with HD for 3hrs today to reduce risk for disequilibrum and then 3.5hrs tomorrow. Will increase home PD to 6 times daily , will need to likely increase fill volumes as well, Patient is anxioius to remain on PD but this depends on if if he can achieve clearance in the future. -Appreciate vascular surgery for Perm cath placement CT with mild hydroureteronephrosis WITHOUT nephrolithiasis . -was seen by urology. -Will proceed with HD following (2) Anemia Current Visit: Yes Status: Acute Plan to address problem: Moderate Anemia Hb: 9.6g/dl 2/2 chronic kidney disease Epogen with HD if hb<9g/dl (3) Uremia Current Visit: Yes Status: Acute Plan to address problem: Uremia -2/2 inadequate dialysis versus non compliance - Will initate hemodialysis for solute clearance he is at risk for complications of uremia -Will continue PD as well . - Will need evaluation as he does not appear to be achieving clearance with current prescription for PD / versus non compliance. - PD prescription increased to 6times daily. (4) Hyperkalemia, diminished renal excretion Current Visit: Yes Status: Acute Plan to address problem: Hyperkalemia: Will initiate Hemodialysis Low potassium diet. (5) Acidosis Current Visit: Yes Status: Acute Plan to address problem: Metabolic acidosis 2/2 inadequate dialysis. Will initiate hemodialysis for solute clearance
[2018-12-22] MEDS: HEPARIN 10,000 UNITS/10 ML ONE ×3 (14:19→14:29)
[2018-12-22] MEDS: XYLOCAINE 1%/ EPI 1:100,000 INFILTRATI ONE ×2 (14:25→14:30)
--- NOTE | 2018-12-22 14:39 | Consultation ---
History of Present Illness - Reason for Consult Consult date: 12/22/18 Evaluation for PermaCath placement Requesting physician: LAUREEN COOPER - History of Present Illness This pt is a 48yo AAM that was admitted via the ER on 12/22/18 with nausea. He had a CT scan the revealed mild right hydroureteronephrosis. He has ESRD on PD. He has been getting poor clearance (BUN 138 Cr 33.7). He was evaluated by Nephrology who has recommended conversion to HD at least temporarily. A vascular surgery consult has been requested to evaluate for permacath placement. Past History Past Medical History: dialysis, ESRD, heart failure, hypertension Past Surgical History: Other (peritoneal cath) Social history: no significant social history Family history: no significant family history Medications and Allergies Allergies Allergy/AdvReac Type Severity Reaction Status Date / Time No Known Allergies Allergy Unverified 05/22/18 12:04 Home Medications Medication Instructions Recorded Confirmed Last Taken Type Calcitriol [Rocaltrol] 0.25 mcg PO Q48H 05/22/18 12/22/18 12/21/18 History Calcium Acetate [Phoslo] 1,334 mg PO DAILY 05/22/18 12/22/18 12/21/18 History Carvedilol [Coreg] 25 mg PO BID 05/22/18 12/22/18 12/21/18 History Furosemide [Lasix] 80 mg PO DAILY 05/22/18 12/22/18 12/21/18 History Hydralazine HCl 50 mg PO TID 05/22/18 12/22/18 12/21/18 History Lisinopril [Zestril] 20 mg PO DAILY 05/22/18 12/22/18 12/21/18 09:00 History Multivitamin [Multiple Vitamins] 1 each PO DAILY 05/22/18 12/22/18 Unknown History NIFEdipine [Nifedipine ER] 30 mg PO DAILY 05/22/18 12/22/18 Unknown History Oxycodone HCl/Acetaminophen 1 each PO Q6HR PRN 05/22/18 12/22/18 11/28/18 History [Percocet 2.5/325 mg] Pravastatin [Pravachol] 20 mg PO QHS 05/22/18 12/22/18 Unknown History Sodium Bicarbonate 650 mg PO TID 05/22/18 12/22/18 12/21/18 History Active Meds: Active Medications Acetaminophen (Tylenol) 650 mg PO Q6H PRN PRN Reason: Pain, Moderate (4-6) Calcitriol (Rocaltrol) 0.25 mcg PO Q48H [facility] Last Admin: 12/22/18 08:24 Dose: 0.25 mcg Documented by: Calcium Acetate (Phoslo) 1,334 mg PO QAM@0800 [facility] Last Admin: 12/22/18 08:23 Dose: 1,334 mg Documented by: Carvedilol (Coreg) 25 mg PO BID [facility] Last Admin: 12/22/18 09:23 Dose: 25 mg Documented by: Docusate Sodium (Colace) 100 mg PO BID [facility] Last Admin: 12/22/18 09:23 Dose: 100 mg Documented by: Enoxaparin Sodium (Lovenox) 30 mg SUB-Q QDAY [facility] Last Admin: 12/22/18 09:24 Dose: 30 mg Documented by: Furosemide (Lasix) 80 mg PO DAILY [facility] Last Admin: 12/22/18 09:24 Dose: 80 mg Documented by: Hydralazine HCl (Apresoline) 25 mg PO TID [facility] Last Admin: 12/22/18 08:24 Dose: 25 mg Documented by: Ceftriaxone Sodium (Rocephin/Ns 1 Gm/50 Ml) 1 gm in 50 mls @ 100 mls/hr IV Q24HR [facility]; Protocol Last Admin: 12/22/18 09:37 Dose: 100 mls/hr Documented by: Sodium Chloride (Nacl 0.9% 500 Ml) 500 mls @ 50 mls/hr IV DIRECT [facility] Lisinopril (Zestril) 20 mg PO DAILY [facility] Last Admin: 12/22/18 09:25 Dose: 20 mg Documented by: Morphine Sulfate (Morphine) 2 mg IV Q4H PRN PRN Reason: Pain, Moderate (4-6) Last Admin: 12/22/18 08:15 Dose: 2 mg Documented by: Multivit/Ca Carb/B Cmplx/FA/Prenat (Renal Caps) 1 cap PO QDAY [facility] Last Admin: 12/22/18 09:25 Dose: 1 cap Documented by: Nifedipine (Procardia Xl) 30 mg PO DAILY [facility] Last Admin: 12/22/18 09:25 Dose: 30 mg Documented by: Ondansetron HCl (Zofran) 4 mg IV Q4H PRN PRN Reason: Nausea And Vomiting Last Admin: 12/22/18 11:40 Dose: 4 mg Documented by: Oxycodone HCl (Roxicodone) 2.5 mg PO Q6H PRN PRN Reason: Pain, Moderate (4-6) Peritoneal Dialysis Solution (Dianeal Low Calcium W/2.5% Dextrose) 2,000 ml IP Q4HR [facility] Last Admin: 12/22/18 13:13 Dose: Not Given Documented by: Pravastatin Sodium (Pravachol) 20 mg PO QHS [facility] Sodium Bicarbonate (Sodium Bicarbonate) 650 mg PO TID [facility] Last Admin: 12/22/18 08:25 Dose: 650 mg Documented by: Sodium Chloride (Sodium Chloride Flush Syringe 10 Ml) 10 ml IV BID [facility] Last Admin: 12/22/18 09:26 Dose: 10 ml Documented by: Sodium Chloride (Sodium Chloride Flush Syringe 10 Ml) 10 ml IV PRN PRN PRN Reason: LINE FLUSH Review of Systems All systems: negative Exam - Constitutional Vitals: Temp Pulse Resp BP Pulse Ox 98.5 F 75 18 161/84 96 12/22/18 08:47 12/22/18 12:57 12/22/18 08:47 12/22/18 12:57 12/22/18 12:57 General appearance: Present: no acute distress - EENT Eyes: Present: EOM intact ENT: hearing intact - Neck Neck: Present: supple - Respiratory Respiratory effort: normal - Extremities Extremities: normal temperature - Psychiatric Psychiatric: appropriate mood/affect, intact judgment & insight, cooperative - Neurologic Neurologic: no focal deficits Results - Labs CBC & Chem 7: 12/22/18 02:16 12/22/18 02:16 Labs: Abnormal lab results 12/22/18 12/22/18 12/22/18 Range/Units 02:16 02:16 05:00 RBC 3.00 L (3.65-5.03) M/mm3 Hgb 9.7 L (11.8-15.2) gm/dl Hct 29.4 L (35.5-45.6) % MCV 98 H (84-94) fl [place] % (Auto) 7.7 H (0.0-7.3) % Lymph # 1.1 L (1.2-5.4) K/mm3 Seg Neutrophils % 71.5 H (40.0-70.0) % Potassium 5.4 H (3.6-5.0) mmol/L Carbon Dioxide 12 L (22-30) mmol/L BUN 148 H (9-20) mg/dL Creatinine 33.7 H (0.8-1.5) mg/dL Glucose 119 H (75-100) mg/dL POC Glucose 129 H (70-105) Calcium 7.7 L (8.4-10.2) mg/dL Assessment and Plan This pt has been admitted and noted to have a symptomatic uremia despite PD. A vascular surgery consult has been requested to evaluate for PC placement. The risk, benefits, and alternatives discussed at length. He has had a previous RIJ PC in the past. He states understanding of the risk, and agrees to proceed. This will be performed in the laboratory sample carrier utilizing fluoroscopic and u/s guidance as needed. - Patient Problems (1) Uremia Current Visit: Yes Status: Acute (2) End stage renal disease Current Visit: Yes Status: Acute (3) Hypertensive urgency Current Visit: Yes Status: Acute
[2018-12-22] MEDS ORDERED: NACL 0.9% 100 ML IV PRN ×2 (14:40→15:03)
--- NOTE | 2018-12-22 14:41 | Operative Report ---
Operative Report Operative Report: Date of procedure: 12/22/2018 Pre-operative diagnosis: ESRD Post-operative diagnosis: same Procedure name(s): 1. US guided puncture of the left internal jugular vein 2. Placement of left internal jugular permacath (Glidepath 27 cm) 3. Fluoroscopic supervision Surgeon: Gumaro Lai MD, FACS Women Designer: none Anesthesia: local with sedation; Sedation start: 1414 Sedation end: 1440 Total sedation time: 26 minutes or 2 anesthesia units EBL: minimal Operative indication: Patient is a 48 yo man who requires hemodialysis access. Findings: Good flow from both ports. Catheter located at the cavoatrial junction. Procedure: The patient was placed on the table in the supine position. The area over the left neck and chest was prepped with ChloraPrep solution and draped in usual sterile fashion. 2% lidocaine was used for local anesthesia. Under real-time ultrasound guidance the left internal jugular vein was identified and cannulated. A guidewire was advanced into the central circulation. A tunnel was made over the anterior chest using the tunneling device in the kit. The catheter was then tunneled between the 2 incisions. Using a series of dilators, the track into the jugular vein was dilated. The introducer sheath was then placed. The catheter was placed through the introducer sheath which was then removed. The catheter tip was placed at the cavoatrial junction. The catheters were aspirated with excellent flow from both ports. Both ports flushed easily. They were then filled to their stated volume with 1000 unit per milliliter heparin. Closure at the insertion site was done with 4-0 subcuticular Monocryl. The catheter was sewn to the skin with 2-0 Proline. Sterile dressings were applied. The patient tolerated the procedure well.
--- NOTE | 2018-12-22 15:35 | Event Note ---
Dialysis note Patient seen on hemodialysis Denies any complaints has Left IJ perm cath complains of hunger Diet orders are in I attest I saw the patient on Hemodialysis at 3.30pm BP: 160/80.
[2018-12-22 17:21] LABS: Hepatitis C Virus Antibody Non-Reactive (NonReactive)
[2018-12-22 17:53] LABS: Hepatitis B Surface Antigen Non-Reactive (Negative)
[2018-12-22] MEDS: PRAVACHOL PO SCH (21:30)
[2018-12-23] MEDS: DIANEAL LOW CALCIUM W/2.5% DEXTROSE IP SCH ×5 (01:32→18:44)
[2018-12-23] MEDS: SODIUM BICARBONATE PO SCH ×3 (09:49→21:34)
[2018-12-23] MEDS: Renal Caps PO SCH (09:49)
[2018-12-23] MEDS: APRESOLINE PO SCH ×3 (09:49→21:36)
[2018-12-23] MEDS: PHOSLO PO SCH (09:50)
[2018-12-23] MEDS: COLACE PO SCH ×2 (09:50→21:34)
[2018-12-23] MEDS: LOVENOX SUB-Q SCH (09:50)
--- NOTE | 2018-12-23 09:51 | Progress Note ---
Assessment and Plan Impression: * ESRD on PD * uremia * noncompliance * HTN * anemia in ESRD Plan: * continue hemodialysis for uremia * continue daily CAPD--4 exchanges * follow up pd cell count and diff and cultures * strict i/os, daily lytes * stress compliance with dialysis regiemen * may have to switch to hemodialysis permanently if compliance with PD and issue * avoid nephrotoxins * strict i/os Subjective Date of service: 12/23/18 Principal diagnosis: esrd Interval history: resting well in bed today Objective - Exam Narrative Exam: General appearance: well-developed, well-nourished EENT: ATNC, PERRL Neck: Present: neck supple Respiratory: Rales, Decreased Breath Sounds Heart: regular, S1S2 Gastrointestinal: Present: normoactive bowel sounds, other (peritoneal dialysis catheter site clean. ) Integumentary: no rash Neurologic: alert and oriented x3, CN 3-12 intact Musculoskeletal: Absent: erythema Psychiatric: mood/affect appropriate - Vital Signs Vital signs: Vital Signs - 12hr 12/23/18 05:36 Temperature 100.0 F H Pulse Rate 80 Respiratory 20 Rate Blood Pressure 130/84 O2 Sat by Pulse 97 Oximetry - Lab 12/22/18 02:16 12/22/18 02:16 Most recent lab results Calcium 7.7 mg/dL (8.4-10.2) L 12/22/18 02:16 Medications & Allergies - Medications Allergies/Adverse Reactions: Allergies No Known Allergies Allergy (Unverified 05/22/18 12:04) Home Medications: Home Medications Medication Instructions Recorded Confirmed Last Taken Type Calcitriol [Rocaltrol] 0.25 mcg PO Q48H 05/22/18 12/22/18 12/21/18 History Calcium Acetate [Phoslo] 1,334 mg PO DAILY 05/22/18 12/22/18 12/21/18 History Carvedilol [Coreg] 25 mg PO BID 05/22/18 12/22/18 12/21/18 History Furosemide [Lasix] 80 mg PO DAILY 05/22/18 12/22/18 12/21/18 History Hydralazine HCl 50 mg PO TID 05/22/18 12/22/18 12/21/18 History Lisinopril [Zestril] 20 mg PO DAILY 05/22/18 12/22/18 12/21/18 09:00 History Multivitamin [Multiple Vitamins] 1 each PO DAILY 05/22/18 12/22/18 Unknown History NIFEdipine [Nifedipine ER] 30 mg PO DAILY 05/22/18 12/22/18 Unknown History Oxycodone HCl/Acetaminophen 1 each PO Q6HR PRN 05/22/18 12/22/18 11/28/18 History [Percocet 2.5/325 mg] Pravastatin [Pravachol] 20 mg PO QHS 05/22/18 12/22/18 Unknown History Sodium Bicarbonate 650 mg PO TID 05/22/18 12/22/18 12/21/18 History Active Medications: Generic Name Dose Route Start Last Admin Trade Name Freq PRN Reason Stop Dose Admin Acetaminophen 650 mg 12/22/18 07:41 Tylenol PO Q6H PRN Pain, Moderate (4-6) Calcitriol 0.25 mcg 12/22/18 07:00 12/22/18 08:24 Rocaltrol PO 0.25 mcg Q48H MARCELLO Administration Calcium Acetate 1,334 mg 12/22/18 08:00 12/22/18 08:23 Phoslo PO 1,334 mg QAM@0800 MARCELLO Administration Carvedilol 25 mg 12/22/18 10:00 12/22/18 21:30 Coreg PO 25 mg BID MARCELLO Administration Docusate Sodium 100 mg 12/22/18 10:00 12/22/18 21:30 Colace PO 100 mg BID MARCELLO Administration Enoxaparin Sodium 30 mg 12/22/18 10:00 12/22/18 09:24 Lovenox SUB-Q 30 mg QDAY MARCELLO Administration Furosemide 80 mg 12/22/18 10:00 12/22/18 09:24 Lasix PO 80 mg DAILY MARCLELO Administration Hydralazine HCl 25 mg 12/22/18 08:00 12/22/18 21:31 Apresoline PO 25 mg TID MARCELLO Administration Ceftriaxone Sodium 1 gm in 50 mls @ 100 mls/hr 12/22/18 10:00 12/22/18 09:37 Rocephin/Ns 1 Gm/50 Ml IV 100 mls/hr Q24HR MARCELLO Administration Protocol Sodium Chloride 500 mls @ 50 mls/hr 12/22/18 14:00 Nacl 0.9% 500 Ml IV DIRECT MARCELLO Sodium Chloride 100 mls @ 999 mls/hr 12/22/18 14:40 Nacl 0.9% IV BONNIE PRN Hypotension Sodium Chloride 100 mls @ 999 mls/hr 12/22/18 15:03 Nacl 0.9% IV BONNIE PRN Hypotension Lisinopril 20 mg 12/22/18 10:00 12/22/18 09:25 Zestril PO 20 mg DAILY MARCELLO Administration Morphine Sulfate 2 mg 12/22/18 05:54 12/22/18 21:41 Morphine IV 2 mg Q4H PRN Administration Pain, Moderate (4-6) Multivit/Ca Carb/B Cmplx/FA/Prenat 1 cap 12/22/18 10:00 12/22/18 09:25 Renal Caps PO 1 cap QDAY MARCELLO Administration Nifedipine 30 mg 12/22/18 10:00 12/22/18 09:25 Procardia Xl PO 30 mg DAILY MARCELLO Administration Ondansetron HCl 4 mg 12/22/18 11:02 12/22/18 11:40 Zofran IV 4 mg Q4H PRN Administration Nausea And Vomiting Oxycodone HCl 2.5 mg 12/22/18 07:39 Roxicodone PO Q6H PRN Pain, Moderate (4-6) Peritoneal Dialysis Solution 2,000 ml 12/22/18 10:00 12/23/18 09:39 Dianeal Low Calcium W/2.5% Dextrose IP Not Given Q4HR MARCELLO Pravastatin Sodium 20 mg 12/22/18 22:00 12/22/18 21:30 Pravachol PO 20 mg QHS MARCELLO Administration Sodium Bicarbonate 650 mg 12/22/18 08:00 12/22/18 21:31 Sodium Bicarbonate PO 650 mg TID MARCELLO Administration Sodium Chloride 10 ml 12/22/18 10:00 12/22/18 21:32 Sodium Chloride Flush Syringe 10 Ml IV 10 ml BID MARCELLO Administration Sodium Chloride 10 ml 12/22/18 05:54 Sodium Chloride Flush Syringe 10 Ml IV PRN PRN LINE FLUSH
[2018-12-23] MEDS: ROCEPHIN/NS 1 GM/50 ML 1 GM/50 ML BAG IV SCH (11:29)
[2018-12-23] MEDS: PROCARDIA XL PO SCH (11:51)
[2018-12-23] MEDS: COREG PO SCH ×2 (11:51→21:34)
[2018-12-23] MEDS: ZESTRIL PO SCH (11:51)
[2018-12-23] MEDS: LASIX PO SCH (11:51)
[2018-12-23] MEDS: SODIUM CHLORIDE FLUSH SYRINGE 10 ML IV SCH ×2 (11:52→21:35)
[2018-12-23] MEDS ORDERED: NACL 0.9 (PRIMING MACHINE ONLY DIALYSIS) MC ONE (12:26)
--- NOTE | 2018-12-23 12:51 | Progress Note ---
Assessment and Plan Assessment and plan: --Right lower quadrant abdominal pain; symptoms significantly improved -- ESRD on PD, nephrology initiated hemodialysi, continue supportive care --ESRD nephrology initiated HD --Anemia of ESRD; monitor H&H and transfuse as needed --H/o Hear failure (stable); secondary to fluid overload --Hypertension; moderate control on antihypertensives and when necessary medications -- Hyperkalemia; corrected --Right hydroureteronephrosis; Evaluated by urology, significantly improved --DVT prophylaxis; depending on dose Monitor patient closely and adjust management as needed. Plan of care is reviewed with the patient and his nurse History Interval history: Patient seen and examined medical records reviewed Patient seen secondary to pneumonia complaints vital signs stable Alert awake oriented 3 not in acute distress Hospitalist Physical - Constitutional Vitals: Temp Pulse Resp BP Pulse Ox 98.6 F 76 20 147/87 99 12/23/18 11:48 12/23/18 11:51 12/23/18 11:48 12/23/18 11:51 12/23/18 11:48 General appearance: Present: no acute distress, well-nourished - EENT Eyes: Present: PERRL, EOM intact - Neck Neck: Present: supple, normal ROM - Respiratory Respiratory effort: normal Respiratory: bilateral: diminished, negative: rales, rhonchi, wheezing - Cardiovascular Rhythm: regular Heart Sounds: Present: S1 & S2 - Extremities Extremities: no ischemia, No edema - Abdominal General gastrointestinal: soft, non-tender, non-distended, normal bowel sounds - Integumentary Integumentary: Present: clear, warm - Psychiatric Psychiatric: appropriate mood/affect, cooperative - Neurologic Neurologic: CNII-XII intact, moves all extremities Results - Labs CBC & Chem 7: 12/22/18 02:16 12/22/18 02:16 Labs: Laboratory Last Values WBC 6.5 K/mm3 (4.5-11.0) 12/22/18 02:16 RBC 3.00 M/mm3 (3.65-5.03) L 12/22/18 02:16 Hgb 9.7 gm/dl (11.8-15.2) L 12/22/18 02:16 Hct 29.4 % (35.5-45.6) L 12/22/18 02:16 MCV 98 fl (84-94) H 12/22/18 02:16 MCH 32 pg (28-32) 12/22/18 02:16 MCHC 33 % (32-34) 12/22/18 02:16 RDW 14.9 % (13.2-15.2) 12/22/18 02:16 Plt Count 314 K/mm3 (140-440) 12/22/18 02:16 Lymph % (Auto) 17.3 % (13.4-35.0) 12/22/18 02:16 [place] % (Auto) 7.7 % (0.0-7.3) H 12/22/18 02:16 Eos % (Auto) 2.1 % (0.0-4.3) 12/22/18 02:16 Baso % (Auto) 1.4 % (0.0-1.8) 12/22/18 02:16 Lymph # 1.1 K/mm3 (1.2-5.4) L 12/22/18 02:16 [place] # 0.5 K/mm3 (0.0-0.8) 12/22/18 02:16 Eos # 0.1 K/mm3 (0.0-0.4) 12/22/18 02:16 Baso # 0.1 K/mm3 (0.0-0.1) 12/22/18 02:16 Seg Neutrophils % 71.5 % (40.0-70.0) H 12/22/18 02:16 Seg Neutrophils # 4.7 K/mm3 (1.8-7.7) 12/22/18 02:16 Sodium 142 mmol/L (137-145) 12/22/18 02:16 Potassium 5.4 mmol/L (3.6-5.0) H 12/22/18 02:16 Chloride 100.8 mmol/L (98-107) 12/22/18 02:16 Carbon Dioxide 12 mmol/L (22-30) L 12/22/18 02:16 35 mmol/L 12/22/18 02:16 BUN 148 mg/dL (9-20) H 12/22/18 02:16 33.7 mg/dL (0.8-1.5) H 12/22/18 02:16 Estimated GFR 1 ml/min 12/22/18 02:16 4 % 12/22/18 02:16 Glucose 119 mg/dL (75-100) H 12/22/18 02:16 POC Glucose 129 (70-105) H 12/22/18 05:00 Lactic Acid 0.80 mmol/L (0.7-2.0) 12/22/18 04:32 Calcium 7.7 mg/dL (8.4-10.2) L 12/22/18 02:16 0.20 mg/dL (0.1-1.2) 12/22/18 02:16 AST 14 units/L (5-40) 12/22/18 02:16 ALT 8 units/L (7-56) 12/22/18 02:16 38 units/L (35-129) 12/22/18 02:16 7.3 g/dL (6.3-8.2) 12/22/18 02:16 4.3 g/dL (3.9-5) 12/22/18 02:16 1.4 % 12/22/18 02:16 Straw (Yellow) 12/22/18 02:30 Clear (Clear) 12/22/18 02:30 5.0 (5.0-7.0) 12/22/18 02:30 Ur Specific [place] 1.012 (1.003-1.030) 12/22/18 02:30 100 mg/dl mg/dL (Negative) 12/22/18 02:30 Neg mg/dL (Negative) 12/22/18 02:30 Neg mg/dL (Negative) 12/22/18 02:30 Sm (Negative) 12/22/18 02:30 Neg (Negative) 12/22/18 02:30 Neg (Negative) 12/22/18 02:30 < 2.0 mg/dL (<2.0) 12/22/18 02:30 Ur Leukocyte Esterase Neg (Negative) 12/22/18 02:30 2.0 /HPF (0.0-6.0) 12/22/18 02:30 < 1.0 /HPF (0.0-6.0) 12/22/18 02:30 U Epithel Cells (Auto) 1.0 /HPF (0-13.0) 12/22/18 02:30 1+ /HPF (Negative) 12/22/18 02:30 Hepatitis A IgM Ab Non-reactive (NonReactive) 12/22/18 16:30 Hep Bs Antigen Non-reactive (Negative) 12/22/18 16:30 Hep B Core IgM Ab Non-reactive (NonReactive) 12/22/18 16:30 Non-reactive (NonReactive) 12/22/18 16:30 Active Medications - Current Medications Current Medications: Generic Name Dose Route Start Last Admin Trade Name Freq PRN Reason Stop Dose Admin Acetaminophen 650 mg 12/22/18 07:41 Tylenol PO Q6H PRN Pain, Moderate (4-6) Calcitriol 0.25 mcg 12/22/18 07:00 12/22/18 08:24 Rocaltrol PO 0.25 mcg Q48H MARCELLO Administration Calcium Acetate 1,334 mg 12/22/18 08:00 12/23/18 09:50 Phoslo PO 1,334 mg QAM@0800 MARCELLO Administration Carvedilol 25 mg 12/22/18 10:00 12/23/18 11:51 Coreg PO 25 mg BID MARCELLO Administration Docusate Sodium 100 mg 12/22/18 10:00 12/23/18 09:50 Colace PO 100 mg BID MARCELLO Administration Enoxaparin Sodium 30 mg 12/22/18 10:00 12/23/18 09:50 Lovenox SUB-Q 30 mg QDAY MARCELLO Administration Furosemide 80 mg 12/22/18 10:00 12/23/18 11:51 Lasix PO 80 mg DAILY MARCELLO Administration Hydralazine HCl 25 mg 12/22/18 08:00 12/23/18 09:49 Apresoline PO 25 mg TID MARCELLO Administration Ceftriaxone Sodium 1 gm in 50 mls @ 100 mls/hr 12/22/18 10:00 12/23/18 11:29 Rocephin/Ns 1 Gm/50 Ml IV 100 mls/hr Q24HR MARCELLO Administration Protocol Sodium Chloride 500 mls @ 50 mls/hr 12/22/18 14:00 Nacl 0.9% 500 Ml IV DIRECT MARCELLO Sodium Chloride 100 mls @ 999 mls/hr 12/22/18 14:40 Nacl 0.9% IV BONNIE PRN Hypotension Sodium Chloride 100 mls @ 999 mls/hr 12/22/18 15:03 Nacl 0.9% IV BONNIE PRN Hypotension Lisinopril 20 mg 12/22/18 10:00 12/23/18 11:51 Zestril PO 20 mg DAILY MARCELLO Administration Morphine Sulfate 2 mg 12/22/18 05:54 12/22/18 21:41 Morphine IV 2 mg Q4H PRN Administration Pain, Moderate (4-6) Multivit/Ca Carb/B Cmplx/FA/Prenat 1 cap 12/22/18 10:00 12/23/18 09:49 Renal Caps PO 1 cap QDAY MARCELLO Administration Nifedipine 30 mg 12/22/18 10:00 12/23/18 11:51 Procardia Xl PO 30 mg DAILY MARCELLO Administration Ondansetron HCl 4 mg 12/22/18 11:02 12/22/18 11:40 Zofran IV 4 mg Q4H PRN Administration Nausea And Vomiting Oxycodone HCl 2.5 mg 12/22/18 07:39 Roxicodone PO Q6H PRN Pain, Moderate (4-6) Peritoneal Dialysis Solution 2,000 ml 12/22/18 10:00 12/23/18 09:39 Dianeal Low Calcium W/2.5% Dextrose IP Not Given Q4HR [facility] Pravastatin Sodium 20 mg 12/22/18 22:00 12/22/18 21:30 Pravachol PO 20 mg QHS MARCELLO Administration Sodium Bicarbonate 650 mg 12/22/18 08:00 12/23/18 09:49 Sodium Bicarbonate PO 650 mg TID MARCELLO Administration Sodium Chloride 10 ml 12/22/18 10:00 12/23/18 11:52 Sodium Chloride Flush Syringe 10 Ml IV 10 ml BID MARCELLO Administration Sodium Chloride 10 ml 12/22/18 05:54 Sodium Chloride Flush Syringe 10 Ml IV PRN PRN LINE FLUSH
[2018-12-23] MEDS: ZOFRAN IV PRN (14:04)
[2018-12-23] MEDS: PRAVACHOL PO SCH (21:34)
[2018-12-24 07:11] VITALS: BP 123/80
--- NOTE | 2018-12-24 08:53 | Progress Note ---
Assessment and Plan Impression: * ESRD on PD * uremia * noncompliance * HTN * anemia in ESRD Plan: * continue hemodialysis for uremia, follow up labs * HD again in am * will need placement at [facility] * continue daily CAPD--4 exchanges * follow up pd cell count and diff and cultures * strict i/os, daily lytes * avoid nephrotoxins * strict i/os Subjective Date of service: 12/24/18 Principal diagnosis: esrd Interval history: resting well in bed today Objective - Exam Narrative Exam: General appearance: well-developed, well-nourished EENT: ATNC, PERRL Neck: Present: neck supple Respiratory: Rales, Decreased Breath Sounds Heart: regular, S1S2 Gastrointestinal: Present: normoactive bowel sounds, other (peritoneal dialysis catheter site clean. ) Integumentary: no rash Neurologic: alert and oriented x3, CN 3-12 intact Musculoskeletal: Absent: erythema Psychiatric: mood/affect appropriate - Vital Signs Vital signs: Vital Signs - 12hr 12/23/18 12/23/18 12/23/18 21:34 21:36 21:37 Temperature Pulse Rate 89 89 Respiratory Rate Blood Pressure 112/67 112/67 112/67 O2 Sat by Pulse Oximetry 12/23/18 12/24/18 23:44 05:27 Temperature 98.7 F 98.0 F Pulse Rate 85 83 Respiratory 18 18 Rate Blood Pressure 126/81 123/80 O2 Sat by Pulse 95 98 Oximetry - Lab 12/22/18 02:16 12/22/18 02:16 Most recent lab results Calcium 7.7 mg/dL (8.4-10.2) L 12/22/18 02:16 Medications & Allergies - Medications Allergies/Adverse Reactions: Allergies No Known Allergies Allergy (Unverified 05/22/18 12:04) Home Medications: Home Medications Medication Instructions Recorded Confirmed Last Taken Type Calcitriol [Rocaltrol] 0.25 mcg PO Q48H 05/22/18 12/22/18 12/21/18 History Calcium Acetate [Phoslo] 1,334 mg PO DAILY 05/22/18 12/22/18 12/21/18 History Carvedilol [Coreg] 25 mg PO BID 05/22/18 12/22/18 12/21/18 History Furosemide [Lasix] 80 mg PO DAILY 11/12/22/18 12/21/18 History Hydralazine HCl 50 mg PO TID 05/22/18 12/22/18 12/21/18 History Lisinopril [Zestril] 20 mg PO DAILY 05/22/18 12/22/18 12/21/18 09:00 History Multivitamin [Multiple Vitamins] 1 each PO DAILY 05/22/18 12/22/18 Unknown History NIFEdipine [Nifedipine ER] 30 mg PO DAILY 05/22/18 12/22/18 Unknown History Oxycodone HCl/Acetaminophen 1 each PO Q6HR PRN 05/22/18 12/22/18 11/28/18 History [Percocet 2.5/325 mg] Pravastatin [Pravachol] 20 mg PO QHS 05/22/18 12/22/18 Unknown History Sodium Bicarbonate 650 mg PO TID 05/22/18 12/22/18 12/21/18 History Active Medications: Generic Name Dose Route Start Last Admin Trade Name Freq PRN Reason Stop Dose Admin Acetaminophen 650 mg 12/22/18 07:41 Tylenol PO Q6H PRN Pain, Moderate (4-6) Calcitriol 0.25 mcg 12/22/18 07:00 12/22/18 08:24 Rocaltrol PO 0.25 mcg Q48H MARCELLO Administration Calcium Acetate 1,334 mg 12/22/18 08:00 12/23/18 09:50 Phoslo PO 1,334 mg QAM@0800 MARCELLO Administration Carvedilol 25 mg 12/22/18 10:00 12/23/18 21:34 Coreg PO 25 mg BID MARCELLO Administration Docusate Sodium 100 mg 12/22/18 10:00 12/23/18 21:34 Colace PO 100 mg BID MARCELLO Administration Enoxaparin Sodium 30 mg 12/22/18 10:00 12/23/18 09:50 Lovenox SUB-Q 30 mg QDAY MARCELLO Administration Furosemide 80 mg 12/22/18 10:00 12/23/18 11:51 Lasix PO 80 mg DAILY MARCELLO Administration Hydralazine HCl 25 mg 12/22/18 08:00 12/23/18 21:36 Apresoline PO Not Given TID MARCELLO Ceftriaxone Sodium 1 gm in 50 mls @ 100 mls/hr 12/22/18 10:00 12/23/18 11:29 Rocephin/Ns 1 Gm/50 Ml IV 100 mls/hr Q24HR MARCELLO Administration Protocol Sodium Chloride 500 mls @ 50 mls/hr 12/22/18 14:00 Nacl 0.9% 500 Ml IV DIRECT MARCELLO Sodium Chloride 100 mls @ 999 mls/hr 12/22/18 14:40 Nacl 0.9% IV BONNIE PRN Hypotension Sodium Chloride 100 mls @ 999 mls/hr 12/22/18 15:03 Nacl 0.9% IV BONNIE PRN Hypotension Lisinopril 20 mg 12/22/18 10:00 12/23/18 11:51 Zestril PO 20 mg DAILY MARCELLO Administration Morphine Sulfate 2 mg 12/22/18 05:54 12/22/18 21:41 Morphine IV 2 mg Q4H PRN Administration Pain, Moderate (4-6) Multivit/Ca Carb/B Cmplx/FA/Prenat 1 cap 12/22/18 10:00 12/23/18 09:49 Renal Caps PO 1 cap QDAY MARCELLO Administration Nifedipine 30 mg 12/22/18 10:00 12/23/18 11:51 Procardia Xl PO 30 mg DAILY MARCELLO Administration Ondansetron HCl 4 mg 12/22/18 11:02 12/23/18 14:04 Zofran IV 4 mg Q4H PRN Administration Nausea And Vomiting Oxycodone HCl 2.5 mg 12/22/18 07:39 Roxicodone PO Q6H PRN Pain, Moderate (4-6) Peritoneal Dialysis Solution 2,000 ml 12/22/18 10:00 12/23/18 18:44 Dianeal Low Calcium W/2.5% Dextrose IP Not Given Q4HR MARCELLO Pravastatin Sodium 20 mg 12/22/18 22:00 12/23/18 21:34 Pravachol PO 20 mg QHS MARCELLO Administration Sodium Bicarbonate 650 mg 12/22/18 08:00 12/23/18 21:34 Sodium Bicarbonate PO 650 mg TID MARCELLO Administration Sodium Chloride 10 ml 12/22/18 10:00 12/23/18 21:35 Sodium Chloride Flush Syringe 10 Ml IV 10 ml BID MARCELLO Administration Sodium Chloride 10 ml 12/22/18 05:54 Sodium Chloride Flush Syringe 10 Ml IV PRN PRN LINE FLUSH
[2018-12-24] MEDS: DIANEAL LOW CALCIUM W/2.5% DEXTROSE IP SCH (10:00)
[2018-12-24 10:16] LABS: Calcium 8.1 mg/dL (8.4-10.2)
[2018-12-24] MEDS: Renal Caps PO SCH (10:33)
[2018-12-24] MEDS: COLACE PO SCH (10:34)
[2018-12-24] MEDS: LASIX PO SCH (10:34)
[2018-12-24] MEDS: PHOSLO PO SCH (10:37)
[2018-12-24] MEDS: ROCEPHIN/NS 1 GM/50 ML 1 GM/50 ML BAG IV SCH (10:37)
[2018-12-24] MEDS: ROCALTROL PO SCH (10:37)
[2018-12-24] MEDS: LOVENOX SUB-Q SCH (10:38)
[2018-12-24] MEDS: APRESOLINE PO SCH (10:38)
[2018-12-24] MEDS: SODIUM CHLORIDE FLUSH SYRINGE 10 ML IV SCH (10:39)
[2018-12-24] MEDS: SODIUM BICARBONATE PO SCH (10:39)
[2018-12-24] MEDS: ZESTRIL PO SCH (10:40)
[2018-12-24] MEDS: COREG PO SCH (10:40)
[2018-12-24] MEDS: PROCARDIA XL PO SCH (10:40)
--- NOTE | 2018-12-24 16:26 | Discharge Summary ---
Providers - Providers Date of Admission: 12/22/18 05:00 Date of discharge: 12/24/18 Attending physician: MALIK PERRY 12/22/18 03:42 Consult to Physician [CONS] Urgent Comment: Dr. Moon spoke with Dr. Rasheed @ 0424 Consulting Provider: CELY MACE Physician Instructions: Reason For Exam: abd pain abnormla labs 12/24/18 08:53 Consult to Case Management [CONS] Routine Services Needed at Discharge: Other Notified:: charo Additional Physician Instructions: [facility] hemodialysis placement Primary care physician: [facility], Hospitalization Reason for admission: abdominal pain Condition: Good Pertinent studies: CT abdomen and pelvis Procedures: Ultrasound-guided puncture of left internal jugular vein placement of left IJ permacath Hospital course: 48-year-old male with PMHx of end-stage renal disease on PD, heart failure, hypertension was admitted to the ER with complaints of abdomen pain for 2 days. Patient also reports a right lower quadrant abdominal pain, associated with nausea and vomiting. Patient denies fever, denies headache, denies dizziness, In the ER, he had a CT scan of the abdomen which showed mild right hydroreteronephrosis and periureteral stranding which may be due to infection or recently passed stone.Urology consulted for evaluation , symptoms improved. Patient was symptomatically managed, evaluated by nephrology, and event Vas-Cath placement and hemodialysis. Nephrology recommended both hemodialysis as well as [place] dialysis Today patient is comfortable, nephrology wanted to have dialysis tomorrow and discharge if everything was okay however patient refused to stay Wanted to leave AGAINST MEDICAL ADVICE, nephrology was informed. Risks and consequences and complications of AGAINST MEDICAL ADVICE was discussed with the patient by me and the others health care providers, patient verbalized understanding, and insisted on leaving Signed the necessary documents and left the hospital AMA Patient strongly advised to follow primary care physician or go to emergency room should he have any difficulties with his dialysis or any other medical problems, Patient verbalized understanding Discharge diagnosis; --Right lower quadrant abdominal pain; symptoms significantly improved -- ESRD on PD, nephrology initiated hemodialysi, continue supportive care --ESRD nephrology initiated HD --Anemia of ESRD; monitor H&H and transfuse as needed --H/o Hear failure (stable); secondary to fluid overload --Hypertension; moderate control on antihypertensives and when necessary medications -- Hyperkalemia; corrected --Right hydroureteronephrosis; Evaluated by urology, significantly improved Left AMA Disposition: DC-07 LEFT AGAINST MED ADVICE Time spent for discharge: 32 min Core Measure Documentation - Palliative Care Palliative Care/ Comfort Measures: Not Applicable - Core Measures Any of the following diagnoses?: none Exam - Constitutional Vitals: Temp Pulse Resp BP Pulse Ox 98.0 F 83 18 123/80 98 12/24/18 05:27 12/24/18 05:27 12/24/18 05:27 12/24/18 05:12/24/18 05:27 General appearance: Present: no acute distress, well-nourished - EENT Eyes: Present: PERRL, EOM intact - Neck Neck: Present: supple, normal ROM - Respiratory Respiratory effort: normal Respiratory: bilateral: diminished, negative: rales, rhonchi, wheezing - Cardiovascular Rhythm: regular Heart Sounds: Present: S1 & S2 - Extremities Extremities: no ischemia, No edema - Abdominal General gastrointestinal: Present: soft, non-tender, non-distended, normal bowel sounds - Integumentary Integumentary: Present: clear, warm - Musculoskeletal Musculoskeletal: strength equal bilaterally, generalized weakness - Psychiatric Psychiatric: appropriate mood/affect, cooperative - Neurologic Neurologic: CNII-XII intact, moves all extremities Plan Activity: advance as tolerated Diet: renal Additional Instructions: f/u renal,HD per schedule Follow up with: BLAKE DAVENPORT MD [Primary Care Provider] - 3-5 Days JAZZ CAMARGO MD [Staff Physician] - 7 Days
== END 2018-12-24 11:00 | disposition left against medical advice (07) | DRG 291 ==
LOC: ED 01:12 → 4A 05:00 → 3A 18:54
PROVIDERS: ADMIT Internal Medicine; ATTEND Internal Medicine
PROC: 0JH63XZ Insertion of Tunneled Vascular Access Device into Chest Subcutaneous Tissue and Fascia, Percutaneous Approach (ICD-10-PCS; principal; 2018-12-22)
PROC: 02HV33Z Insertion of Infusion Device into Superior Vena Cava, Percutaneous Approach (ICD-10-PCS; 2018-12-22)
PROC: B5181ZA Fluoroscopy of Superior Vena Cava using Low Osmolar Contrast, Guidance (ICD-10-PCS; 2018-12-22)
PROC: B548ZZA Ultrasonography of Superior Vena Cava, Guidance (ICD-10-PCS; 2018-12-22)
PROC: 5A1D70Z Performance of Urinary Filtration, Intermittent, Less than 6 Hours Per Day (ICD-10-PCS; 2018-12-22)
PROC: 5A1D70Z Performance of Urinary Filtration, Intermittent, Less than 6 Hours Per Day (ICD-10-PCS; 2018-12-23)
DX: I13.2 Hypertensive heart and chronic kidney disease with heart failure and with stage 5 chronic kidney disease, or end stage renal disease (principal); N18.6 End stage renal disease; E87.2 Acidosis; N13.30 Unspecified hydronephrosis; R10.31 Right lower quadrant pain; E87.5 Hyperkalemia; I50.9 Heart failure, unspecified; D63.1 Anemia in chronic kidney disease; I16.0 Hypertensive urgency; G43.909 Migraine, unspecified, not intractable, without status migrainosus; Z91.19 Patient's noncompliance with other medical treatment and regimen
CPT/HCPCS: 36415; 36558; 74176; 77001; 80048; 80053; 80074; 81001; 82140; 82271; 82962; 85025; 87040; 87086; 93005; 93010; 96365; 96372; 96375; G0378; A9270-GY; C1750; C1769; J0360; J0690; J0696; J1170; J1644; J1650; J2250; J2270; J2405; J3010; J7030; J7040

== ENCOUNTER 2019-01-29 07:56 | Observation (INO) | payer MEDICARE ==
[2019-01-29 08:20] LABS: Basophils # (Auto) 0.1 K/mm3 (0.0-0.1); Basophils % (Auto) 1.2 % (0.0-1.8); Eosinophils # (Auto) 0.2 K/mm3 (0.0-0.4); Eosinophils % (Auto) 2.6 % (0.0-4.3); Hematocrit 24.4 % (35.5-45.6); Lymphocytes # (Auto) 1.5 K/mm3 (1.2-5.4); Lymphocytes % (Auto) 18.6 % (13.4-35.0); Mean Corpuscular HGB Conc 33 % (32-34); Mean Corpuscular Volume 101 fl (84-94); Monocytes # (Auto) 0.9 K/mm3 (0.0-0.8); Monocytes % (Auto) 11.3 % (0.0-7.3); Platelet Count 325 K/mm3 (140-440); Red Blood Count 2.41 M/mm3 (3.65-5.03); Red Cell Distribution Width 14.2 % (13.2-15.2)
[2019-01-29 08:40] LABS: Calcium 8.6 mg/dL (8.4-10.2)
--- NOTE | 2019-01-29 08:46 | XRay Report ---
CHEST 1 VIEW INDICATION: Chest Pain. COMPARISON: None FINDINGS: Support devices: A dual-lumen left IJ venous catheter terminates near the cavoatrial junction. Heart: Mild cardiomegaly. Lungs/Pleura: No acute air space or interstitial disease. Additional findings: None. IMPRESSION: Mild cardiomegaly. Lungs clear. Signer Name: Rich Ponce Jr, MD Signed: 01/29/2019 8:41 AM Workstation Name: [id number]
[2019-01-29 08:56] LABS: Chol/HDL Ratio 2.69 %
--- NOTE | 2019-01-29 10:15 | Emergency Department Report ---
ED Chest Pain HPI - General Chief Complaint: Chest Pain Stated Complaint: CHEST PAIN Time Seen by Provider: 01/29/19 09:37 Source: patient Mode of arrival: Ambulatory Limitations: No Limitations - History of Present Illness Initial Comments: 48-year-old male presents to the emergency department with a complaint of a three-day history of some midsternal to left-sided chest pain. The pain worsens when he lays on either side while sleeping and last night he says that he had to sleep upright in a chair. He denies any shortness of breath, nausea, vomiting, back pain or diaphoresis. He did not take anything for her symptoms prior to presentation. He denies any tobacco or illicit drug use. He has a past medical history of CHF, hypertension and end-stage renal disease on hemodialysis on Tuesday/Tuesday/Tuesday. He last had dialysis on Tuesday. His service plumber is Dr. Montez. He does not have a primary care physician. No recent travel or sick contacts at home. - Related Data Home Medications Medication Instructions Recorded Confirmed Last Taken Calcium Acetate [Phoslo] 1,334 mg PO DAILY 05/22/18 01/29/19 12/21/18 Carvedilol [Coreg] 25 mg PO BID 05/22/18 01/29/19 12/21/18 Hydralazine HCl 50 mg PO TID 05/22/18 01/29/19 12/21/18 Multivitamin [Multiple Vitamins] 1 each PO DAILY 05/22/18 01/29/19 Unknown amLODIPine [Norvasc] 10 mg PO DAILY 01/29/19 01/29/19 Unknown Allergies Allergy/AdvReac Type Severity Reaction Status Date / Time No Known Allergies Allergy Unverified 05/22/18 12:04 Heart Score - HEART Score History: Moderately suspicious EKG: Non-specific Age: 45-65 Risk factors: 1-2 risk factors Troponin: > 3x normal limit HEART Score: 6 - Critical Actions Critical Actions: 4-6 pts:12-16.6% risk of adverse cardiac event. Should be admitted ED Review of Systems ROS: Stated complaint: CHEST PAIN Other details as noted in HPI Comment: All other systems reviewed and negative Constitutional: denies: chills, fever Eyes: denies: eye pain, vision change ENT: denies: ear pain, throat pain Respiratory: denies: cough, shortness of breath Cardiovascular: chest pain. denies: palpitations, edema Gastrointestinal: denies: abdominal pain, vomiting Genitourinary: denies: dysuria, discharge Musculoskeletal: denies: back pain, arthralgia Skin: denies: rash, lesions Neurological: denies: headache, weakness ED Past Medical Hx - Past Medical History Previous Medical History?: Yes Hx Hypertension: Yes Hx Heart Attack/AMI: No Hx Congestive Heart Failure: Yes Hx Diabetes: No Hx Deep Vein Thrombosis: No Hx Pulmonary Embolism: No Hx Liver Disease: No Hx Renal Disease: Yes Hx Sickle Cell Disease: No Hx Headaches / Migraines: Yes (Past hx migraines) Hx Seizures: No Hx Kidney Stones: No Hx Asthma: No Hx COPD: No Hx Tuberculosis: No Hx Dementia: No Hx HIV: No - Surgical History Past Surgical History?: Yes Hx Coronary Stent: No Hx Pacemaker: No Hx Internal Defibrillator: No Additional Surgical History: PD catheter - Social History Smoking Status: Never Smoker Substance Use Type: Alcohol - Medications Home Medications: Home Medications Medication Instructions Recorded Confirmed Last Taken Type Calcium Acetate [Phoslo] 1,334 mg PO DAILY 05/22/18 01/29/19 12/21/18 History Carvedilol [Coreg] 25 mg PO BID 05/22/18 01/29/19 12/21/18 History Hydralazine HCl 50 mg PO TID 05/22/18 01/29/19 12/21/18 History Multivitamin [Multiple Vitamins] 1 each PO DAILY 05/22/18 01/29/19 Unknown History amLODIPine [Norvasc] 10 mg PO DAILY 01/29/19 01/29/19 Unknown History ED Physical Exam - General Limitations: No Limitations - Other Other exam information: GENERAL: The patient is well-developed well-nourished. HENT: Normocephalic. Atraumatic. Patient has moist mucous membranes. EYES: Extraocular motions are intact. Pupils equal reactive to light bilaterally. NECK: Supple. Trachea is midline. CHEST/LUNGS: Clear to auscultation. There is no respiratory distress noted. Dialysis port in left chest wall. HEART/CARDIOVASCULAR: Regular. There is no tachycardia. There is no murmur. ABDOMEN: Abdomen is soft, nontender. Patient has normal bowel sounds. There is no abdominal distention. SKIN: Skin is warm and dry. NEURO: The patient is awake, alert, and oriented. The patient is cooperative. The patient has no focal neurologic deficits. The patient has normal speech. MUSCULOSKELETAL: There is no tenderness or deformity. There is no evidence of acute injury. ED Course Vital Signs 01/29/19 01/29/19 07:58 09:49 Temperature 97.9 F Pulse Rate 81 76 Respiratory 16 16 Rate Blood Pressure 146/83 Blood Pressure 143/79 [Left] O2 Sat by Pulse 99 96 Oximetry LUIS ANGEL score - Luis Angel Score Age > 65: (0) No Aspirin use within the Past 7 Days: (0) No 3 or more CAD Risk Factors: (0) No 2 or more Angina events in past 24 hrs: (1) Yes Known CAD with more than 50% Stenosis: (0) No Elevated Cardiac Markers: (1) Yes ST Deviation Greater than 0.5mm: (1) Yes LUIS ANGEL Score: 3 ED Medical Decision Making - Lab Data Result diagrams: 01/29/19 08:08 01/29/19 08:08 - EKG Data -: EKG Interpreted by Me EKG shows normal: sinus rhythm (PVCs), axis, intervals (prolonged QTC), QRS complexes (LVH), ST-T waves (T-wave inversions through the lateral leads) Rate: normal - EKG Data When compared to previous EKG there are: no significant change Interpretation: unchanged when compared t (12/22/18) - Radiology Data Radiology results: report reviewed, image reviewed interpreted by me: Chest x-ray shows some cardiomegaly but otherwise no signs of any pleural effusions, pneumothorax, pneumonia. VENTILATION PERFUSION PULMONARY SCINTIGRAPHY HISTORY: Pleuritic chest pain COMPARISON: 01/29/2019 at 0818 hours chest radiograph. TECHNIQUE: Radiopharmaceutical was inhaled. Tc-99m-MAA was then injected. Ventilation and perfusion images were acquired. RADIOPHARMACEUTICAL: 9.6 mCi of Xe-133 inhaled 5.5 mCi of Tc-99m-MAA injected FINDINGS: VENTILATION: No significant air trapping or defect. PERFUSION: No significant segmental or non-segmental defect. Additional Findings: None. IMPRESSION: 1. Low probability for pulmonary embolism. - Medical Decision Making Patient presents with a 2 or 3 day history of some midsternal to left-sided chest pain. He is due for dialysis today but does not appear to be volume overloaded. EKG is unchanged from previous a few months ago. The patient has had 2 elevated troponin levels thus far, however he is dialysis dependent and these may not be accurate indications of coronary artery disease in this patient. However, given his continued chest pain, the fact that he has not had a stress test at least a few years, the patient will get admitted to the hospital for further evaluation and treatment. He did have an elevated d-dimer level and had a VQ scan that resulted as low probability for pulmonary embolism. He was accepted for admission by the hospitalist, Dr pedraza. I contacted the patient's service plumber who saw the patient in the emergency department and will arrange for dialysis. - Differential Diagnosis NM, PE, pneumonia, hyperkalemia Critical Care Time: No Critical care attestation.: If time is entered above; I have spent that time in minutes in the direct care of this critically ill patient, excluding procedure time. ED Disposition Clinical Impression: Acute chest pain, ESRD needing dialysis, Elevated troponin Anemia Qualifiers: Anemia type: unspecified type Qualified Code(s): D64.9 - Anemia, unspecified Disposition: -09 OP ADMIT IP TO THIS HOSP Is pt being admited?: Yes Condition: Stable Time of Disposition: 12:00
[2019-01-29] MEDS ORDERED: BABY ASPIRIN PO ONE (10:21)
[2019-01-29] MEDS ORDERED: MORPHINE IV ONE (10:21)
--- NOTE | 2019-01-29 11:17 | Consultation ---
History of Present Illness - History of Present Illness Thank you for the consultation ! Patient was evaluated today My assessment and plan are as follows; End-stage renal disease: Patient is currently on hemodialysis, and will need to continue with hemodialysis 3 times a week however, we'll wait for cardiology evaluation due to abnormal troponin Admitted with chest pain mostly positional, being rule out for PE patient is getting a VQ scan Anemia and end-stage renal disease: Monitor hemoglobin and hematocrit erythropoietin as needed. Workup as required Secondary hyperparathyroidism: Check phosphorus and PTH level periodically, binders as needed Dialysis access: Currently working well, currently a catheter 2-month-old Malnutrition risk: High consider high-protein diet dietitian evaluation and follow-up in general 1.5 g protein per KG body weight Fluid restriction: 1200 cc per day not to exceed more than that patient also has a peritoneal dialysis catheter, that needs to be removed in the outpatient setting Adequately counseled and educated about other hospital related issues as well Labs were discussed with patient and simple Armenian Patient does appear to have good understanding of all the dialysis related issu es Patient was adequately counseled and educated regarding multiple renal related issues. e All renal related questions were answered and simple Armenian pertinent lab studies as well as imaging results were also discussed with patient We will continue to follow and make recommendations from renal standpoint. Thank you for the consultation Author: Abhinav Gamez M.D. [facility], [address] [place] [address] Tel; [phone] Source of information: From patient History of present illness Patient is a 48-year-old -Maltese male who is currently in maintenance and with dialysis Tuesday patient has been admitted here with chest pain which is mostly located in the left side of his chest below his permacath site patient has no complains of any fevers chills sweating and nausea vomiting, his pain gets worse when he's laying down and feels better when he is sitting up. Patient denies having any fever or chills, he has not been missing any treatment as he informs me Past medical history: End-stage renal disease Anemia and incisional disease Secondary hyperparathyroidism Current allergies: Reviewed from the current chart Social history: Reviewed from the current chart Family history: Reviewed from the current chart Review of system: Positive for All other review of systems negative Physical examination Vitals: Reviewed General: No acute distress HEENT: Oral mucosa moist no pallor or icterus Neck: Supple without any JVD thyromegaly or nodular mass Central venous catheter site unremarkable Chest: Clear to auscultation Heart: Regular rate and rhythm S1-S2 heard no S3-S4 Abdomen: Soft nontender, bowel sounds present no renal bruit no suprapubic masses no CVA tenderness noted PD catheter site unremarkable Extremity: Minimal edema dry skin no peripheral cyanosis Endocrine: Thyroid not enlarged Psychiatric: No agitation and aggression noted Musculoskeletal: No joint effusion noted Labs and x-rays: Reviewed from this admission Medications and Allergies Allergies Allergy/AdvReac Type Severity Reaction Status Date / Time No Known Allergies Allergy Unverified 05/22/18 12:04 Home Medications Medication Instructions Recorded Confirmed Last Taken Type Calcium Acetate [Phoslo] 1,334 mg PO DAILY #30 capsule 01/30/19 Unknown Rx Carvedilol [Coreg] 25 mg PO BID #60 tablet 01/30/19 Unknown Rx Epoetin Tenzin 20,000 Unit [Procrit] 40,000 unit SUB-Q ONCE vial 01/30/19 Unknown Rx Famotidine [Pepcid] 10 mg PO BID #60 tablet 01/30/19 Unknown Rx Hydralazine HCl 50 mg PO TID #90 tablet 01/30/19 Unknown Rx Multivitamin [Multiple Vitamins] 1 each PO DAILY #30 tablet 01/30/19 Unknown Rx amLODIPine [Norvasc] 10 mg PO DAILY #30 tablet 01/30/19 Unknown Rx oxyCODONE /ACETAMINOPHEN [Percocet 1 tab PO Q6H PRN #8 tablet 01/30/19 Unknown Rx 5/325 mg] Exam - Vital Signs Vital signs: Vital Signs Temp Pulse Resp BP Pulse Ox 97.9 F 81 16 146/83 99 01/29/19 07:58 01/29/19 07:58 01/29/19 07:58 01/29/19 07:58 01/29/19 07:58 Results - Lab Results 01/30/19 02:44 01/30/19 02:44 Most recent lab results Calcium 8.6 mg/dL (8.4-10.2) 01/29/19 08:08
--- NOTE | 2019-01-29 11:40 | Nuclear Medicine Report ---
VENTILATION PERFUSION PULMONARY SCINTIGRAPHY HISTORY: Pleuritic chest pain COMPARISON: 01/29/2019 at 0818 hours chest radiograph. TECHNIQUE: Radiopharmaceutical was inhaled. Tc-99m-MAA was then injected. Ventilation and perfusion images were acquired. RADIOPHARMACEUTICAL: 9.6 mCi of Xe-133 inhaled 5.5 mCi of Tc-99m-MAA injected FINDINGS: VENTILATION: No significant air trapping or defect. PERFUSION: No significant segmental or non-segmental defect. Additional Findings: None. IMPRESSION: 1. Low probability for pulmonary embolism. Signer Name: Rich Ponce Jr, MD Signed: 01/29/2019 11:36 AM Workstation Name: [id number]
--- NOTE | 2019-01-29 21:58 | Event Note ---
Date: 01/29/19 See history and physical in the reports Chest pain rule out NC protocol End-stage renal disease Hypertension
[2019-01-29] MEDS ORDERED: REGLAN IV PRN ×2 (21:59→22:13)
[2019-01-29] MEDS ORDERED: DILAUDID IV PRN (21:59)
[2019-01-29] MEDS ORDERED: TYLENOL PO PRN (21:59)
[2019-01-29] MEDS ORDERED: PERCOCET 5/325 PO PRN (21:59)
[2019-01-29] MEDS ORDERED: SODIUM CHLORIDE FLUSH SYRINGE 10 ML IV PRN (21:59)
[2019-01-29] MEDS ORDERED: ZOFRAN IV PRN (21:59)
[2019-01-29] MEDS ORDERED: NON-FORMULARY (Multivitamin [Multiple Vitamins] 1 EACH) PO SCH (22:00)
[2019-01-29] MEDS: COREG PO SCH (22:22)
[2019-01-29] MEDS: NORVASC PO SCH (22:23)
[2019-01-29] MEDS: SODIUM CHLORIDE FLUSH SYRINGE 10 ML IV SCH (22:23)
[2019-01-29] MEDS: PEPCID PO SCH (22:23)
[2019-01-30 03:07] LABS: Basophils # (Auto) 0.1 K/mm3 (0.0-0.1); Basophils % (Auto) 0.9 % (0.0-1.8); Eosinophils # (Auto) 0.2 K/mm3 (0.0-0.4); Eosinophils % (Auto) 2.8 % (0.0-4.3); Hematocrit 23.4 % (35.5-45.6); Hemoglobin 7.7 gm/dl (11.8-15.2); Lymphocytes # (Auto) 1.5 K/mm3 (1.2-5.4); Lymphocytes % (Auto) 22.5 % (13.4-35.0); Mean Corpuscular HGB Conc 33 % (32-34); Mean Corpuscular Volume 100 fl (84-94); Monocytes # (Auto) 0.6 K/mm3 (0.0-0.8); Monocytes % (Auto) 9.8 % (0.0-7.3); Platelet Count 309 K/mm3 (140-440); Red Blood Count 2.33 M/mm3 (3.65-5.03); Red Cell Distribution Width 14.3 % (13.2-15.2)
[2019-01-30 03:29] LABS: Albumin 3.5 g/dL (3.9-5); Calcium 7.8 mg/dL (8.4-10.2)
--- NOTE | 2019-01-30 07:29 | History and Physical Report ---
CHIEF COMPLAINT: Left-sided chest pain for 3 days. HISTORY OF PRESENT ILLNESS: A 48-year-old -[place] male with history of hypertension, end-stage renal disease, comes in for left-sided chest pain for 3 days. Chest pain is intermittent. The chest pain is especially prominent when he lies on his right side or the left side. No radiation. No diaphoresis or palpitations. Exacerbating factor is change of position. No recent trauma. No lifting of weights. PAST MEDICAL HISTORY: As mentioned, hypertension, end-stage renal disease, congestive heart failure, and migraines. PAST SURGICAL HISTORY: PD catheter. SOCIAL HISTORY: Does not smoke. No alcohol. FAMILY HISTORY: Hypertension. REVIEW OF SYSTEMS: Significant for left-sided chest pain, especially exacerbated by position. Otherwise, review of systems negative. PHYSICAL EXAMINATION: VITAL SIGNS: Blood pressure is 139/75, temperature is 98.4, pulse is 77, respirations are 18, sats are 96%. HEENT: Unremarkable. Pupils equal and reactive. NECK: Supple, no lymphadenopathy, no thyromegaly. LUNGS: Clear to auscultation and percussion. Good air entry. CARDIOVASCULAR: S1, S2 heard. No gallop, no murmur, no rub. Apical impulse in left fifth intercostal space and midclavicular line. ABDOMEN: Soft and benign. No hepatosplenomegaly. No guarding, no rigidity. Hernial orifices are normal. EXTREMITIES: Good pedal pulses. No pedal edema. CENTRAL NERVOUS SYSTEM: Alert and oriented x 4, nonfocal exam. SKIN: Normal. LABORATORY DATA: White count is 7.8 thousand. H and H is 8.0 and 24.4, platelet count is 325,000. Electrolytes are normal. BUN and creatinine 67 and 13.0. Troponin is 0.145. HDL is 68. EKG shows normal sinus rhythm, heart rate of 70 per minute, LVH by voltage criteria, T-wave inversion secondary to repolarization abnormalities. Probable ischemia in the lateral leads. Chest x-ray, no acute findings. Mild cardiomegaly. Pulmonary perfusion was low probability for pulmonary embolism. ASSESSMENT AND PLAN: 1. Chest pain, rule out myocardial infarction, chest pain protocol. Lexiscan in the morning. Serial troponins. Troponins are a bit high, but can be attributed to end-stage renal disease with high creatinine. 2. Hypertension. Continue antihypertensives. 3. End-stage renal disease. Continue peritoneal dialysis. Nephrology consulted. 4. Anemia secondary to chronic kidney disease. 5. Elevated D-dimer, pulmonary embolism ruled out. 6. Deep venous thrombosis prophylaxis, heparin 5000 q.12. JOB# [id number] VSM/NTS
[2019-01-30] MEDS ORDERED: PHOSLO PO SCH (08:00)
[2019-01-30] MEDS ORDERED: NON-FORMULARY (Hydralazine Hcl [Hydralazine Hcl] 50 MG) PO SCH (08:00)
[2019-01-30] MEDS: COREG PO SCH (09:14)
[2019-01-30] MEDS: NORVASC PO SCH (09:15)
[2019-01-30] MEDS: APRESOLINE PO SCH ×2 (09:15→17:02)
[2019-01-30] MEDS: PEPCID PO SCH (09:16)
[2019-01-30] MEDS: SODIUM CHLORIDE FLUSH SYRINGE 10 ML IV SCH (09:20)
[2019-01-30 09:25] VITALS: BP 145/80
--- NOTE | 2019-01-30 09:32 | Progress Note ---
Subjective Interval history: Patient was seen today for follow-up on multiple renal related issues He is currently pending cardiology evaluation I do not see any cardiology evaluation, even in the prior admissions Noted to be more anemic today Events over 24 hours were noted Vitals intake output medications were reviewed Allergies: Reviewed Social/family history: Reviewed Physical examination: Gen.: No acute distress HEENT: Oral mucosa moist, no icterus Neck: Supple no thyromegaly maass or JVD Chest: Clear to auscultation Heart: Regular rate and rhythm S1-S2 heard no S3-S4 Abdomen: Soft nontender no suprapubic masses nor organomegaly Extremity: Dry skin less than 1+ edema,No petechial rashes Psych: No evidence of any agitation and aggression noted Neurological: Alert awake Assessment and plan End-stage renal disease: Patient will need hemodialysis today however he will need to have a cardiology evaluation please consult cardiology for evaluation of chest pain, events of this hospitalization have been noted Anemia and end-stage renal disease current hemoglobin is declining 7.7 we'll give erythropoietin 40k x 1 Patient will need order for workup of anemia Chest pain, atypical, troponin consistently elevated at 0.145 could be due to ESRD but given that coronary artery disease is very prevalent in dialysis patient patient absolutely needs a cardiology evaluation possibly an echocardiogram as well as a stress test Will monitor dialysis related labs, patient has been adequately counseled and educated regarding all the renal related issues History of hydronephrosis: We will order for renal ultrasonogram Chest x-ray essentially unremarkable VQ scan: Report reviewed patient was advised to get PD catheter removed, he'll follow up with the PD nurse Order dialysis related labs workup for anemia Patient has been adequately counseled and educated regarding all the renal related issues and does have a good understanding Lab results as well as renal progress was discussed with patient and simple Maltese We will continue to follow and make recommendation from renal standpoint. For any questions please call me at: [phone] Objective - Vital Signs Vital signs: Vital Signs - 12hr 01/29/19 01/29/19 01/29/19 22:22 22:23 23:22 Temperature 98.4 F Pulse Rate 77 77 77 Respiratory 18 Rate Blood Pressure 139/75 139/75 138/78 O2 Sat by Pulse 96 Oximetry 01/30/19 01/30/19 01/30/19 04:01 05:00 09:14 Temperature 98.4 F Pulse Rate 74 80 Respiratory 18 Rate Blood Pressure 137/80 145/80 O2 Sat by Pulse 99 Oximetry 01/30/19 09:15 Temperature Pulse Rate Respiratory Rate Blood Pressure 145/80 O2 Sat by Pulse Oximetry - Lab 01/30/19 02:44 01/30/19 02:44 Most recent lab results Calcium 7.8 mg/dL (8.4-10.2) L 01/30/19 02:44 Medications & Allergies - Medications Allergies/Adverse Reactions: Allergies No Known Allergies Allergy (Unverified 05/22/18 12:04) Home Medications: Home Medications Medication Instructions Recorded Confirmed Last Taken Type Calcium Acetate [Phoslo] 1,334 mg PO DAILY #30 capsule 01/30/19 Unknown Rx Carvedilol [Coreg] 25 mg PO BID #60 tablet 01/30/19 Unknown Rx Epoetin Tenzin 20,000 Unit [Procrit] 40,000 unit SUB-Q ONCE vial 01/30/19 Unknown Rx Famotidine [Pepcid] 10 mg PO BID #60 tablet 01/30/19 Unknown Rx Hydralazine HCl 50 mg PO TID #90 tablet 01/30/19 Unknown Rx Multivitamin [Multiple Vitamins] 1 each PO DAILY #30 tablet 01/30/19 Unknown Rx amLODIPine [Norvasc] 10 mg PO DAILY #30 tablet 01/30/19 Unknown Rx oxyCODONE /ACETAMINOPHEN [Percocet 1 tab PO Q6H PRN #8 tablet 01/30/19 Unknown Rx 5/325 mg] Active Medications: Generic Name Dose Route Start Last Admin Trade Name Freq PRN Reason Stop Dose Admin Acetaminophen 650 mg 01/29/19 21:59 Tylenol PO Q4H PRN Pain MILD(1-3)/Fever >100.5/ROMEO Amlodipine Besylate 10 mg 01/29/19 22:00 01/30/19 09:15 Norvasc PO 10 mg DAILY MARCELLO Administration Calcium Acetate 1,334 mg 01/30/19 08:00 01/30/19 09:14 Phoslo PO 1,334 mg DAILY@0800 MARCELLO Administration Carvedilol 25 mg 01/29/19 22:00 01/30/19 09:14 Coreg PO 25 mg BID MARCELLO Administration Famotidine 10 mg 01/29/19 22:00 01/30/19 09:16 Pepcid PO 10 mg BID MARCELLO Administration Heparin Sodium (Porcine) 5,000 unit 01/30/19 10:00 01/30/19 09:15 Heparin SUB-Q 5,000 unit Q12HR MARCELLO Administration Hydralazine HCl 50 mg 01/30/19 08:00 01/30/19 09:15 Apresoline PO 50 mg TID MARCELLO Administration Hydromorphone HCl 0.5 mg 01/29/19 21:59 Dilaudid IV Q3H PRN Pain , Severe (7-10) Metoclopramide HCl 2.5 mg 01/29/19 22:13 Reglan IV Q6H PRN Nausea And Vomiting Multivitamins 1 each 01/30/19 10:00 01/30/19 09:16 Theragran Tab PO 1 each DAILY MARCELLO Administration Ondansetron HCl 4 mg 01/29/19 21:59 Zofran IV Q8H PRN Nausea And Vomiting Oxycodone/Acetaminophen 1 tab 01/29/19 21:59 Percocet 5/325 PO Q6H PRN Pain, Moderate (4-6) Sodium Chloride 10 ml 01/29/19 22:00 01/30/19 09:20 Sodium Chloride Flush Syringe 10 Ml IV 10 ml BID MARCELLO Administration Sodium Chloride 10 ml 01/29/19 21:59 Sodium Chloride Flush Syringe 10 Ml IV PRN PRN LINE FLUSH
[2019-01-30] MEDS ORDERED: NACL 0.9% 100 ML IV PRN (09:35)
[2019-01-30] MEDS ORDERED: HEPARIN SUB-Q SCH (10:00)
[2019-01-30] MEDS ORDERED: PROCRIT SUB-Q NR (10:00)
[2019-01-30] MEDS ORDERED: THERAGRAN Tab PO SCH (10:00)
[2019-01-30 11:47] LABS: % Iron Saturation 20.13 %
--- NOTE | 2019-01-30 12:02 | Consultation ---
History of Present Illness Consult date: 01/30/19 Consult reason: chest pain History of present illness: Patient is a 48-year old man with chronic hypertension, end stage renal disease on dialysis who is admitted with chest pain. Cardiac consultation requested. Patient describes chest pain with positional changes and deep breathing. Patient states symptoms has been intermittent since left vas-cath was placed. Ventilation perfusion scan reports a low probability for PE. Cycled troponins are elevated likely in the setting on renal disease. An ECG is sinus rhythm with LVH of repolarization abnormalities. Patient denies a history of coronary artery disease but reports he was told of dilated heart chambers by an echocardiogram while hospitalized at [facility] [place] a few months ago. It is unclear if he received any further cardiac evaluation. Medications and Allergies Allergies Allergy/AdvReac Type Severity Reaction Status Date / Time No Known Allergies Allergy Unverified 05/22/18 12:04 Home Medications Medication Instructions Recorded Confirmed Last Taken Type Calcium Acetate [Phoslo] 1,334 mg PO DAILY 05/22/18 01/29/19 12/21/18 History Carvedilol [Coreg] 25 mg PO BID 05/22/18 01/29/19 12/21/18 History Hydralazine HCl 50 mg PO TID 05/22/18 01/29/19 12/21/18 History Multivitamin [Multiple Vitamins] 1 each PO DAILY 05/22/18 01/29/19 Unknown History amLODIPine [Norvasc] 10 mg PO DAILY 01/29/19 01/29/19 Unknown History Active Meds: Active Medications Acetaminophen (Tylenol) 650 mg PO Q4H PRN PRN Reason: Pain MILD(1-3)/Fever >100.5/ROMEO Amlodipine Besylate (Norvasc) 10 mg PO DAILY [facility] Last Admin: 01/30/19 09:15 Dose: 10 mg Documented by: Calcium Acetate (Phoslo) 1,334 mg PO DAILY@0800 [facility] Last Admin: 01/30/19 09:14 Dose: 1,334 mg Documented by: Carvedilol (Coreg) 25 mg PO BID [facility] Last Admin: 01/30/19 09:14 Dose: 25 mg Documented by: Epoetin Tenzin (Procrit) 40,000 unit SUB-Q ONCE NR Stop: 01/30/19 18:00 Famotidine (Pepcid) 10 mg PO BID [facility] Last Admin: 01/30/19 09:16 Dose: 10 mg Documented by: Heparin Sodium (Porcine) (Heparin) 5,000 unit SUB-Q Q12HR [facility] Last Admin: 01/30/19 09:15 Dose: 5,000 unit Documented by: Hydralazine HCl (Apresoline) 50 mg PO TID [facility] Last Admin: 01/30/19 09:15 Dose: 50 mg Documented by: Hydromorphone HCl (Dilaudid) 0.5 mg IV Q3H PRN PRN Reason: Pain , Severe (7-10) Sodium Chloride (Nacl 0.9%) 100 mls @ 999 mls/hr IV BONNIE PRN PRN Reason: Hypotension Metoclopramide HCl (Reglan) 2.5 mg IV Q6H PRN PRN Reason: Nausea And Vomiting Multivitamins (Theragran Tab) 1 each PO DAILY [facility] Last Admin: 01/30/19 09:16 Dose: 1 each Documented by: Ondansetron HCl (Zofran) 4 mg IV Q8H PRN PRN Reason: Nausea And Vomiting Oxycodone/Acetaminophen (Percocet 5/325) 1 tab PO Q6H PRN PRN Reason: Pain, Moderate (4-6) Sodium Chloride (Sodium Chloride Flush Syringe 10 Ml) 10 ml IV BID [facility] Last Admin: 01/30/19 09:20 Dose: 10 ml Documented by: Sodium Chloride (Sodium Chloride Flush Syringe 10 Ml) 10 ml IV PRN PRN PRN Reason: LINE FLUSH Physical Examination Vital Signs Temp Pulse Resp BP Pulse Ox 97.9 F 81 16 146/83 99 01/29/19 07:58 01/29/19 07:58 01/29/19 07:58 01/29/19 07:58 01/29/19 07:58 General appearance: no acute distress HEENT: Positive: PERRL Neck: Positive: trachea midline Cardiac: Positive: Reg Rate and Rhythm Lungs: Positive: Decreased Breath Sounds Neuro: Positive: Grossly Intact Results 01/30/19 02:44 01/30/19 02:44 Cardiac Enzymes 01/30/19 Range/Units 02:44 AST 14 (5-40) units/L CBC 01/30/19 Range/Units 02:44 WBC 6.6 (4.5-11.0) K/mm3 RBC 2.33 L (3.65-5.03) M/mm3 Hgb 7.7 L (11.8-15.2) gm/dl Hct 23.4 L (35.5-45.6) % Plt Count 309 (140-440) K/mm3 Lymph # 1.5 (1.2-5.4) K/mm3 Mills # 0.6 (0.0-0.8) K/mm3 Eos # 0.2 (0.0-0.4) K/mm3 Baso # 0.1 (0.0-0.1) K/mm3 Comprehensive Metabolic Panel 01/30/19 Range/Units 02:44 Sodium 141 (137-145) mmol/L Potassium 4.6 (3.6-5.0) mmol/L Chloride 98.0 (98-107) mmol/L Carbon Dioxide 25 (22-30) mmol/L BUN 77 H (9-20) mg/dL Creatinine 14.4 H (0.8-1.5) mg/dL Glucose 94 (75-100) mg/dL Calcium 7.8 L (8.4-10.2) mg/dL AST 14 (5-40) units/L ALT 6 L (7-56) units/L Alkaline Phosphatase 41 (35-129) units/L Total Protein 6.0 L (6.3-8.2) g/dL Albumin 3.5 L (3.9-5) g/dL Assessment and Plan Chest pain, musculoskeletal ESRD on dialysis Hypertension Obtain prior records from [facility] for cardiac review.
[2019-01-30 12:47] LABS: Hepatitis B Surface Antigen Non-Reactive (Negative); Hepatitis C Virus Antibody Non-Reactive (NonReactive)
--- NOTE | 2019-01-30 14:08 | Discharge Summary ---
Providers - Providers Date of Admission: 01/29/19 12:00 Date of discharge: 01/30/19 Attending physician: NORA MCKNIGHT 01/29/19 11:04 Consult to Physician [CONS] Routine Comment: Consulting Provider: JANES CHAVIS Physician Instructions: Reason For Exam: dialysis 01/30/19 08:34 Consult to Cardiology [CONS] Routine Consulting Provider: KAROLINA RODRIGEZ Reason For Exam: cp Primary care physician: HA MACE Hospitalization Reason for admission: cp Condition: Stable Hospital course: 48-year-old male who presented through the emergency department with complaints of atypical positional chest pain. There is no exertional chest pain, no shortness of breath, no palpitations and no lower extremity edema. He reports that his current chest pain syndrome begun after the permacath was inserted, a few weeks ago. Serial EKGs show sinus rhythm, occasional PVC, left ventricular hypertrophy and revascularization abnormalities of LVH. Serial troponin levels are unchanged at 0.14, consistent with a nonspecific elevation in the setting of chronic renal failure. Ventilation perfusion scan reports a low probability for PE. Cardiology saw the patient in consultation and felt that the chest pain was musculoskeletal. No anginal characteristics were observed and thus car diology felt that there was no need for ischemic evaluation. Therefore, patient will be discharged home. Dedicated discharge time 32 minutes. Disposition: DC-01 TO HOME OR SELFCARE Core Measure Documentation - Palliative Care Palliative Care/ Comfort Measures: Not Applicable - Core Measures Any of the following diagnoses?: none Exam - Constitutional Vitals: Temp Pulse Resp BP Pulse Ox 98.6 F 72 18 145/80 97 01/30/19 08:18 01/30/19 13:00 01/30/19 08:18 01/30/19 09:15 01/30/19 08:18 General appearance: Present: no acute distress, well-nourished - EENT Eyes: Present: PERRL ENT: hearing intact, clear oral mucosa - Neck Neck: Present: supple, normal ROM - Respiratory Respiratory effort: normal Respiratory: bilateral: CTA - Cardiovascular Heart Sounds: Present: S1 & S2. Absent: rub, click - Extremities Extremities: pulses symmetrical, No edema Peripheral Pulses: within normal limits - Abdominal General gastrointestinal: Present: soft, non-tender, non-distended, normal bowel sounds Male genitourinary: Present: normal - Integumentary Integumentary: Present: clear, warm, dry - Musculoskeletal Musculoskeletal: gait normal, strength equal bilaterally - Psychiatric Psychiatric: appropriate mood/affect, intact judgment & insight - Neurologic Neurologic: CNII-XII intact, moves all extremities Plan Activity: no restrictions Weight Bearing Status: Full Weight Bearing Diet: low fat, low cholesterol, low salt Follow up with: HA MACE MD [Primary Care Provider] - 3-5 Days KAROLINA RODRIGEZ MD [Staff Physician] - 7 Days Prescriptions: Carvedilol [Coreg] 25 mg PO BID #60 tablet Hydralazine HCl 50 mg PO TID #90 tablet Multivitamin [Multiple Vitamins] 1 each PO DAILY #30 tablet amLODIPine [Norvasc] 10 mg PO DAILY #30 tablet Famotidine [Pepcid] 10 mg PO BID #60 tablet oxyCODONE /ACETAMINOPHEN [Percocet 5/325 mg] 1 tab PO Q6H PRN #8 tablet PRN Reason: Pain, Moderate (4-6) Calcium Acetate [Phoslo] 1,334 mg PO DAILY #30 capsule
[2019-01-30] MEDS ORDERED: NACL 0.9 (PRIMING MACHINE ONLY DIALYSIS) MC ONE (15:52)
== END 2019-01-30 17:04 | disposition home or self-care (01) ==
LOC: ED 07:56 → 4A 12:00
PROVIDERS: ADMIT Internal Medicine; ATTEND Hospitalist
DX: R07.89 Other chest pain (principal); R74.8 Abnormal levels of other serum enzymes; I13.2 Hypertensive heart and chronic kidney disease with heart failure and with stage 5 chronic kidney disease, or end stage renal disease; N18.6 End stage renal disease; I50.9 Heart failure, unspecified; G43.909 Migraine, unspecified, not intractable, without status migrainosus; D63.1 Anemia in chronic kidney disease; Z82.49 Family history of ischemic heart disease and other diseases of the circulatory system; Z99.2 Dependence on renal dialysis; Z79.899 Other long term (current) drug therapy
CPT/HCPCS: 36415; 71045; 78582; 80048; 80053; 80061; 80074; 82607; 82747; 83036; 83550; 83970; 84100; 84484; 85025; 85045; 85379; 93005; 93010; 96372; 96374; 99284; A9540; A9558; G0378; J0885; J1644; J2270; J7030

== ENCOUNTER 2020-06-26 07:52 | Emergency (ER) | payer MEDICARE ==
--- NOTE | 2020-06-26 10:29 | Event Note ---
ED Screening Note ED Screening Note: Patient is a 49-year-old male that is on HD. His dialysis clinic will not dialyze him until he has a rapid Covid test. He has not been dialyzed since Tuesday. I told him we do not do rapid test in the emergency room. That he needed schedule appointment with a an urgent care or primary care. He states that he is concerned that his potassium is high for he has not been dialyzed since Tuesday. I told him Exam it did not seem that he needed emergent dialysis but I will check his potassium to ensure that it is not not high. However, I told him it is unlikely that he needs emergent dialysis. This initial assessment/diagnostic orders/clinical plan/treatment(s) is/are subject to change based on patients health status, clinical progression and re- assessment by fellow clinical providers in the ED. Further treatment and workup at subsequent clinical providers discretion. Patient/guardian urged not to elope from the ED as their condition may be serious if not clinically assessed and managed. Initial orders include: BMP to check K and evaluate for need for acute HD.
[2020-06-26 11:31] LABS: Calcium 8.8 mg/dL (8.4-10.2)
--- NOTE | 2020-06-26 12:07 | Emergency Department Report ---
ED General Adult HPI - General Chief complaint: Medical Clearance Stated complaint: WEAKNESS/COUGH/FEVER Time Seen by Provider: 06/26/20 10:28 Source: patient Mode of arrival: Wheelchair Limitations: No Limitations - History of Present Illness Initial comments: Patient last dialyzed Tuesday presents here today requesting dialysis. States that he went to his clinic for dialysis as scheduled but they refused to dialyze him because he "had Covid symptoms". He states to me that he has no symptoms and is in his usual state of health. He denies cough or congestion. Denies fevers or any other complaints. -: Sudden, days(s) (1) Radiation: non-radiation Improves with: none Worsens with: none - Related Data Previous Rx's Medication Instructions Recorded Last Taken Type Calcium Acetate [Phoslo] 1,334 mg PO DAILY #30 capsule 01/30/19 Unknown Rx Epoetin Tenzin 20,000 Unit [Procrit] 40,000 unit SUB-Q ONCE vial 01/30/19 Unknown Rx Famotidine [Pepcid] 10 mg PO BID #60 tablet 01/30/19 Unknown Rx Hydralazine HCl 50 mg PO TID #90 tablet 01/30/19 Unknown Rx Multivitamin [Multiple Vitamins] 1 each PO DAILY #30 tablet 01/30/19 Unknown Rx amLODIPine 10 mg PO DAILY #30 tablet 01/30/19 Unknown Rx carvediloL [Coreg] 25 mg PO BID #60 tablet 01/30/19 Unknown Rx oxyCODONE /ACETAMINOPHEN [Percocet 1 tab PO Q6H PRN #8 tablet 01/30/19 Unknown Rx 5/325 mg] Allergies Allergy/AdvReac Type Severity Reaction Status Date / Time No Known Allergies Allergy Unverified 05/22/18 12:04 ED Review of Systems ROS: Stated complaint: WEAKNESS/COUGH/FEVER Other details as noted in HPI Comment: All other systems reviewed and negative ED Past Medical Hx - Past Medical History Hx Hypertension: Yes Hx Heart Attack/AMI: No Hx Congestive Heart Failure: Yes Hx Diabetes: No Hx Deep Vein Thrombosis: No Hx Pulmonary Embolism: No Hx Liver Disease: No Hx Renal Disease: Yes Hx Sickle Cell Disease: No Hx Headaches / Migraines: Yes (Past hx migraines) Hx Seizures: No Hx Kidney Stones: No Hx Asthma: No Hx COPD: No Hx Tuberculosis: No Hx Dementia: No Hx HIV: No - Surgical History Hx Coronary Stent: No Hx Pacemaker: No Hx Internal Defibrillator: No Additional Surgical History: PD catheter - Social History Smoking Status: Never Smoker Substance Use Type: Alcohol - Medications Home Medications: Home Medications Medication Instructions Recorded Confirmed Last Taken Type Calcium Acetate [Phoslo] 1,334 mg PO DAILY #30 capsule 01/30/19 Unknown Rx Epoetin Tenzin 20,000 Unit [Procrit] 40,000 unit SUB-Q ONCE vial 01/30/19 Unknown Rx Famotidine [Pepcid] 10 mg PO BID #60 tablet 01/30/19 Unknown Rx Hydralazine HCl 50 mg PO TID #90 tablet 01/30/19 Unknown Rx Multivitamin [Multiple Vitamins] 1 each PO DAILY #30 tablet 01/30/19 Unknown Rx amLODIPine 10 mg PO DAILY #30 tablet 01/30/19 Unknown Rx carvediloL [Coreg] 25 mg PO BID #60 tablet 01/30/19 Unknown Rx oxyCODONE /ACETAMINOPHEN [Percocet 1 tab PO Q6H PRN #8 tablet 01/30/19 Unknown Rx 5/325 mg] ED Physical Exam - General Limitations: No Limitations General appearance: alert, in no apparent distress - Head Head exam: Present: atraumatic, normocephalic - Eye Eye exam: Present: normal appearance - ENT ENT exam: Present: mucous membranes moist - Neck Neck exam: Present: normal inspection - Respiratory Respiratory exam: Present: normal lung sounds bilaterally. Absent: respiratory distress - Cardiovascular Cardiovascular Exam: Present: regular rate, normal rhythm. Absent: systolic murmur, diastolic murmur, rubs, gallop - GI/Abdominal GI/Abdominal exam: Present: soft, normal bowel sounds - Rectal Rectal exam: Present: deferred - Extremities Exam Extremities exam: Present: normal inspection - Back Exam Back exam: Present: normal inspection - Neurological Exam Neurological exam: Present: alert, oriented X3 - Psychiatric Psychiatric exam: Present: normal affect, normal mood - Skin Skin exam: Present: warm, dry, intact, normal color. Absent: rash ED Course Vital Signs 06/26/20 08:39 Temperature 99.5 F Pulse Rate 83 Respiratory 18 Rate Blood Pressure 120/74 O2 Sat by Pulse 95 Oximetry ED Medical Decision Making - Lab Data Result diagrams: 06/26/20 10:49 - Medical Decision Making Patient had here by dialysis clinic for dialysis because he had symptoms of Co vid. Patient denies any symptoms to me. He has a normal exam. BMP was obtained and does show mild hyperkalemia. Call placed to Dr. Montez's office his chairman ceo at [phone] Robles-states that the clinic is waiting for him to discharge him straight to dialysis. - Differential Diagnosis dialysis, hyperK Critical care attestation.: If time is entered above; I have spent that time in minutes in the direct care of this critically ill patient, excluding procedure time. ED Disposition Clinical Impression: ESRD needing dialysis Disposition: DC-01 TO HOME OR SELFCARE Is pt being admited?: No Condition: Good Instructions: Vascular Access for Hemodialysis Referrals: PRIMARY CARE, [Primary Care Provider] - 3-5 Days Time of Disposition: 12:36
[2020-06-26 12:43] VITALS: BP 137/77
== END 2020-06-26 12:43 | disposition home or self-care (01) ==
LOC: ED 07:52
DX: I13.2 Hypertensive heart and chronic kidney disease with heart failure and with stage 5 chronic kidney disease, or end stage renal disease (principal); N18.6 End stage renal disease; I50.9 Heart failure, unspecified; G43.909 Migraine, unspecified, not intractable, without status migrainosus; Z99.2 Dependence on renal dialysis; Z79.899 Other long term (current) drug therapy
CPT/HCPCS: 36415; 80048; 93005

== ENCOUNTER 2021-11-21 05:04 | Emergency (ER) | payer MEDICARE ==
[2021-11-21] MEDS ORDERED: ALBUTEROL 2.5 MG/3 ML NEBU IH ONE (06:20)
--- NOTE | 2021-11-21 06:50 | XRay Report ---
CHEST 1 VIEW INDICATION / CLINICAL INFORMATION: Dyspnea. COMPARISON: Chest x-ray 01/29/2019 FINDINGS: SUPPORT DEVICES: None. HEART / MEDIASTINUM: [id number] cardiomegaly. LUNGS / PLEURA: Mild prominence of central vasculature bilaterally. No focal consolidation. BONES: No significant osseous abnormality. ADDITIONAL FINDINGS: No significant additional findings. IMPRESSION: 1. Stable [id number] cardiomegaly. 2. Mildly decompensated CHF and/or volume overload is suggested. Signer Name: Abhijit Juarez II, MD Signed: 11/21/2021 6:46 AM Workstation Name: [id number]
[2021-11-21 07:59] LABS: Basophils # (Auto) 0.1 K/mm3 (0.0-0.1); Basophils % (Auto) 0.8 % (0.0-1.8); Eosinophils # (Auto) 0.1 K/mm3 (0.0-0.4); Eosinophils % (Auto) 1.7 % (0.0-4.3); Hematocrit 33.6 % (35.5-45.6); Hemoglobin 11.2 gm/dl (11.8-15.2); Lymphocytes # (Auto) 0.9 K/mm3 (1.2-5.4); Lymphocytes % (Auto) 11.4 % (13.4-35.0); Mean Corpuscular HGB Conc 33 % (32-34); Mean Corpuscular Volume 99 fl (84-94); Monocytes # (Auto) 0.5 K/mm3 (0.0-0.8); Monocytes % (Auto) 6.5 % (0.0-7.3); Platelet Count 348 K/mm3 (140-440); Red Cell Distribution Width 15.8 % (13.2-15.2)
[2021-11-21 08:07] LABS: Creatine Kinase MB 4.6 ng/mL (0.0-4.0)
[2021-11-21 08:08] LABS: Albumin 4.6 g/dL (3.9-5); Calcium 9.4 mg/dL (8.4-10.2)
[2021-11-21 08:28] LABS: Chol/HDL Ratio 2.7 %
--- NOTE | 2021-11-21 08:59 | Emergency Department Report ---
ED Shortness of Breath HPI - General Chief Complaint: Dyspnea/Respdistress Stated Complaint: SOB/ETOH Time Seen by Provider: 11/21/21 06:18 Source: EMS Mode of arrival: Stretcher Limitations: No Limitations - History of Present Illness Initial Comments: PT C/O SOB, PT STATES "I HAVE HAD 2 BEERS" PT SMELLS OF ETO pt missed dialysis today cause he was drinking H -: Gradual, hour(s) Consistency: intermittent Improves With: nothing Worsens With: nothing - Related Data Previous Rx's Medication Instructions Recorded Last Taken Type Calcium Acetate [Phoslo] 1,334 mg PO DAILY #30 capsule 01/30/19 Unknown Rx Epoetin Tenzin 20,000 Unit [Procrit] 40,000 unit SUB-Q ONCE vial 01/30/19 Unknown Rx Famotidine [Pepcid] 10 mg PO BID #60 tablet 01/30/19 Unknown Rx Hydralazine HCl 50 mg PO TID #90 tablet 01/30/19 Unknown Rx Multivitamin [Multiple Vitamins] 1 each PO DAILY #30 tablet 01/30/19 Unknown Rx amLODIPine 10 mg PO DAILY #30 tablet 01/30/19 Unknown Rx carvediloL [Coreg] 25 mg PO BID #60 tablet 01/30/19 Unknown Rx oxyCODONE /ACETAMINOPHEN [Percocet 1 tab PO Q6H PRN #8 tablet 01/30/19 Unknown Rx 5/325 mg] Allergies Allergy/AdvReac Type Severity Reaction Status Date / Time No Known Allergies Allergy Unverified 05/22/18 12:04 ED Review of Systems ROS: Stated complaint: SOB/ETOH Other details as noted in HPI Constitutional: denies: chills, fever Eyes: denies: eye pain, eye discharge, vision change ENT: denies: ear pain, throat pain Respiratory: denies: cough, shortness of breath, wheezing Cardiovascular: denies: chest pain, palpitations Endocrine: no symptoms reported Gastrointestinal: denies: abdominal pain, nausea, diarrhea Genitourinary: denies: urgency, dysuria Musculoskeletal: denies: back pain, joint swelling, arthralgia Skin: denies: rash, lesions Neurological: denies: headache, weakness, paresthesias Psychiatric: denies: anxiety, depression Hematological/Lymphatic: denies: easy bleeding, easy bruising ED Past Medical Hx - Past Medical History Previous Medical History?: Yes Hx Hypertension: Yes Hx Heart Attack/AMI: No Hx Congestive Heart Failure: Yes Hx Diabetes: No Hx Deep Vein Thrombosis: No Hx Pulmonary Embolism: No Hx Liver Disease: No Hx Renal Disease: Yes Hx Sickle Cell Disease: No Hx Headaches / Migraines: Yes (Past hx migraines) Hx Seizures: No Hx Kidney Stones: No Hx Asthma: No Hx COPD: No Hx Tuberculosis: No Hx Dementia: No Hx HIV: No - Surgical History Past Surgical History?: Yes Hx Coronary Stent: No Hx Pacemaker: No Hx Internal Defibrillator: No Additional Surgical History: PD catheter - Social History Smoking Status: Never Smoker Substance Use Type: Alcohol - Medications Home Medications: Home Medications Medication Instructions Recorded Confirmed Last Taken Type Calcium Acetate [Phoslo] 1,334 mg PO DAILY #30 capsule 01/30/19 Unknown Rx Epoetin Tenzin 20,000 Unit [Procrit] 40,000 unit SUB-Q ONCE vial 01/30/19 Unknown Rx Famotidine [Pepcid] 10 mg PO BID #60 tablet 01/30/19 Unknown Rx Hydralazine HCl 50 mg PO TID #90 tablet 01/30/19 Unknown Rx Multivitamin [Multiple Vitamins] 1 each PO DAILY #30 tablet 01/30/19 Unknown Rx amLODIPine 10 mg PO DAILY #30 tablet 01/30/19 Unknown Rx carvediloL [Coreg] 25 mg PO BID #60 tablet 01/30/19 Unknown Rx oxyCODONE /ACETAMINOPHEN [Percocet 1 tab PO Q6H PRN #8 tablet 01/30/19 Unknown Rx 5/325 mg] ED Physical Exam - General Limitations: No Limitations General appearance: alert, in no apparent distress - Head Head exam: Present: atraumatic, normocephalic - Eye Eye exam: Present: normal appearance - ENT ENT exam: Present: mucous membranes moist - Neck Neck exam: Present: normal inspection - Respiratory Respiratory exam: Present: normal lung sounds bilaterally, rales. Absent: respiratory distress - Cardiovascular Cardiovascular Exam: Present: regular rate, normal rhythm. Absent: systolic murmur, diastolic murmur, rubs, gallop - GI/Abdominal GI/Abdominal exam: Present: soft, normal bowel sounds - Rectal Rectal exam: Present: deferred - Extremities Exam Extremities exam: Present: normal inspection - Back Exam Back exam: Present: normal inspection - Neurological Exam Neurological exam: Present: alert, oriented X3 - Psychiatric Psychiatric exam: Present: normal affect, normal mood - Skin Skin exam: Present: warm, dry, intact, normal color. Absent: rash ED Course Vital Signs 11/21/21 11/21/21 11/21/21 05:06 06:37 06:40 Temperature 98.1 F Pulse Rate 84 72 Pulse Rate [ Anterior Bilateral] Pulse Rate [ Anterior] Respiratory 16 14 Rate Respiratory Rate [Anterior Bilateral] Respiratory Rate [Anterior] Blood Pressure 132/72 O2 Sat by Pulse 96 96 94 Oximetry 11/21/21 11/21/21 11/21/21 06:46 07:00 07:16 Temperature Pulse Rate 84 85 82 Pulse Rate [ Anterior Bilateral] Pulse Rate [ Anterior] Respiratory 19 12 21 Rate Respiratory Rate [Anterior Bilateral] Respiratory Rate [Anterior] Blood Pressure 146/74 O2 Sat by Pulse 96 97 94 Oximetry 11/21/21 11/21/21 11/21/21 07:30 07:46 08:00 Temperature Pulse Rate 79 82 83 Pulse Rate [ Anterior Bilateral] Pulse Rate [ Anterior] Respiratory 22 20 15 Rate Respiratory Rate [Anterior Bilateral] Respiratory Rate [Anterior] Blood Pressure 142/72 132/68 145/72 O2 Sat by Pulse 93 96 96 Oximetry 11/21/21 11/21/21 08:06 08:16 Temperature Pulse Rate 79 Pulse Rate [ 83 Anterior Bilateral] Pulse Rate [ 82 Anterior] Respiratory 21 Rate Respiratory 18 Rate [Anterior Bilateral] Respiratory 19 Rate [Anterior] Blood Pressure 155/72 O2 Sat by Pulse 92 Oximetry ED Medical Decision Making - Lab Data Result diagrams: 11/21/21 06:43 11/21/21 06:43 - EKG Data -: EKG Interpreted by Me EKG shows normal: sinus rhythm - EKG Data Interpretation: nonspecific ST-T wave janie, LVH Critical care attestation.: If time is entered above; I have spent that time in minutes in the direct care of this critically ill patient, excluding procedure time. ED Disposition Clinical Impression: SOB (shortness of breath), ESRD needing dialysis, Fluid overload Disposition: ADMITTED INPATIENT Is pt being admited?: Yes Does the pt Need Aspirin: No Condition: Stable Referrals: DWIGHT GARCIA MD [Primary Care Provider] - 3-5 Days
[2021-11-21] MEDS ORDERED: SODIUM CHLORIDE 0.9% 100 ML IV PRN (09:02)
[2021-11-21 09:16] VITALS: BP 160/77
[2021-11-21] MEDS ORDERED: ACETAMINOPHEN 325 MG TAB PO PRN (09:54)
[2021-11-21] MEDS ORDERED: LORazepam 2 MG/ML VIAL IV PRN ×3 (09:54)
[2021-11-21] MEDS ORDERED: MORPHINE 4 MG/1 ML INJ IV PRN (09:54)
[2021-11-21] MEDS ORDERED: HYDROcodone/ACETAMINOPHEN 5-325 MG TAB PO PRN (09:54)
[2021-11-21] MEDS ORDERED: HEPARIN 5,000 UNIT/1 ML VIAL SUB-Q SCH (10:00)
[2021-11-21] MEDS ORDERED: ONDANSETRON 4 MG/2 ML INJ IV PRN (10:11)
[2021-11-21 10:37] LABS: Hepatitis B Surface Antigen Non-Reactive (Negative); Hepatitis C Virus Antibody Non-Reactive (NonReactive)
--- NOTE | 2021-11-21 18:31 | Consultation ---
History of Present Illness - Reason for Consult Consult date: 11/21/21 Past History Social history: other (alcohol use) Family history: no significant family history Medications and Allergies Allergies Allergy/AdvReac Type Severity Reaction Status Date / Time No Known Allergies Allergy Unverified 05/22/18 12:04 Home Medications Medication Instructions Recorded Confirmed Last Taken Type Calcium Acetate [Phoslo] 1,334 mg PO DAILY #30 capsule 01/30/19 Unknown Rx Epoetin Tenzin 20,000 Unit [Procrit] 40,000 unit SUB-Q ONCE vial 01/30/19 Unknown Rx Famotidine [Pepcid] 10 mg PO BID #60 tablet 01/30/19 Unknown Rx Hydralazine HCl 50 mg PO TID #90 tablet 01/30/19 Unknown Rx Multivitamin [Multiple Vitamins] 1 each PO DAILY #30 tablet 01/30/19 Unknown Rx amLODIPine 10 mg PO DAILY #30 tablet 01/30/19 Unknown Rx carvediloL [Coreg] 25 mg PO BID #60 tablet 01/30/19 Unknown Rx oxyCODONE /ACETAMINOPHEN [Percocet 1 tab PO Q6H PRN #8 tablet 01/30/19 Unknown Rx 5/325 mg] Active Meds: Active Medications Acetaminophen (Acetaminophen 325 Mg Tab) 650 mg PO Q4H PRN PRN Reason: Pain MILD(1-3)/Fever >100.5/ROMEO Hydrocodone Bitart/Acetaminophen (Hydrocodone/Acetaminophen 5-325 Mg Tab) 2 each PO Q6H PRN PRN Reason: Pain, Moderate (4-6) Heparin Sodium (Porcine) (Heparin 5,000 Unit/1 Ml Vial) 5,000 unit SUB-Q Q12HR MARCELLO Lorazepam (Lorazepam 2 Mg/Ml Vial) 4 mg IV Q1H PRN PRN Reason: CIWA-Ar 16-25 Lorazepam (Lorazepam 2 Mg/Ml Vial) 2 mg IV Q1H PRN PRN Reason: CIWA-Ar 8-15 Lorazepam (Lorazepam 2 Mg/Ml Vial) 4 mg IV Q15MIN PRN PRN Reason: CIWA-Ar >25 Morphine Sulfate (Morphine 4 Mg/1 Ml Inj) 2 mg IV Q4H PRN PRN Reason: Pain , Severe (7-10) Ondansetron HCl (Ondansetron 4 Mg/2 Ml Inj) 4 mg IV Q8H PRN PRN Reason: Nausea And Vomiting Sodium Chloride (Sodium Chloride 0.9% 10 Ml Flush Syringe) 10 ml IV BID MARCELLO Sodium Chloride (Sodium Chloride 0.9% 10 Ml Flush Syringe) 10 ml IV PRN PRN PRN Reason: LINE FLUSH Exam - Vital Signs Vital signs: Vital Signs Temp Pulse Resp BP Pulse Ox 98.1 F 84 16 132/72 96 11/21/21 05:06 11/21/21 05:06 11/21/21 05:06 11/21/21 05:06 11/21/21 05:06 Results - Lab Results 11/21/21 06:43 11/21/21 06:43 Most recent lab results Calcium 9.4 mg/dL (8.4-10.2) 11/21/21 06:43
--- NOTE | 2021-11-21 18:44 | Event Note ---
Date: 11/21/21 Consulted by the ED at 846am for management of ESRD in patient who presented to the ED with SOB and CXR findings suggestive of pulmonary edema. Hemodialysis orders entered at 902am. Patient signed out AMA at 952am per ED documentation
== END 2021-11-21 09:52 | disposition left against medical advice (07) ==
LOC: ED 05:04
DX: R06.02 Shortness of breath (principal); E87.70 Fluid overload, unspecified; I13.2 Hypertensive heart and chronic kidney disease with heart failure and with stage 5 chronic kidney disease, or end stage renal disease; N18.6 End stage renal disease; I50.9 Heart failure, unspecified; Z99.2 Dependence on renal dialysis; G43.909 Migraine, unspecified, not intractable, without status migrainosus; Z98.890 Other specified postprocedural states
CPT/HCPCS: 36415; 71045; 80053; 80061; 80074; 80320; 82550; 82553; 83880; 84484; 85025; 93005; 94640; 94644; 99284; G0480